=== PATIENT | female | born 1935 | race African-American/Black ===

== ENCOUNTER → 2016-04-06 | Outpatient (CLI) | payer MEDICARE, OTHER ==
[~2016-04-06] MED LIST: ACET-2744 PO; AMIO200T2 PO; ASCO500 PO; BENZ-26 PO; CEFU250T87 PO; CLOP75 PO; DIPH25 PO; DOXY100C PO; FOLI0.4T30 PO; GABA-533 PO; LEVO500 PO; VITE400 PO
[2016-04-06 12:20] VITALS: BP 167/69
== END | disposition home or self-care (01) ==
LOC: HBOWC 11:17
PROVIDERS: ATTEND Emergency Medicine
DX: L89.154 Pressure ulcer of sacral region, stage 4 (principal); I10 Essential (primary) hypertension; G35 Multiple sclerosis; B35.1 Tinea unguium; M86.9 Osteomyelitis, unspecified
CPT/HCPCS: 97597

== ENCOUNTER → 2016-04-20 | Outpatient (CLI) | payer MEDICARE, OTHER ==
[2016-04-20 11:24] VITALS: BP 165/85
== END | disposition home or self-care (01) ==
LOC: HBOWC 10:57
PROVIDERS: ATTEND Emergency Medicine Undersea and Hyperbaric Medicine
DX: L89.154 Pressure ulcer of sacral region, stage 4 (principal); I10 Essential (primary) hypertension; B35.1 Tinea unguium; M46.28 Osteomyelitis of vertebra, sacral and sacrococcygeal region
CPT/HCPCS: 97597

== ENCOUNTER → 2016-05-11 | Outpatient (CLI) | payer MEDICARE, OTHER ==
[2016-05-11 11:49] VITALS: BP 166/77
== END | disposition home or self-care (01) ==
LOC: HBOWC 11:38
PROVIDERS: ATTEND Emergency Medicine
DX: L89.154 Pressure ulcer of sacral region, stage 4 (principal); I10 Essential (primary) hypertension; B35.1 Tinea unguium; M46.28 Osteomyelitis of vertebra, sacral and sacrococcygeal region
CPT/HCPCS: 87070; 87205; 97597

== ENCOUNTER → 2016-05-25 | Outpatient (CLI) | payer MEDICARE, OTHER ==
[~2016-05-25] MED LIST changes: -CEFU250T87 PO
[2016-05-25 11:16] VITALS: BP 159/86
== END | disposition home or self-care (01) ==
LOC: HBOWC 10:25
PROVIDERS: ATTEND Emergency Medicine Undersea and Hyperbaric Medicine
DX: L89.154 Pressure ulcer of sacral region, stage 4 (principal); M46.28 Osteomyelitis of vertebra, sacral and sacrococcygeal region; I10 Essential (primary) hypertension; B35.1 Tinea unguium; G35 Multiple sclerosis
CPT/HCPCS: 97597

== ENCOUNTER 2016-06-08 17:44 | Emergency (ER) | payer MEDICARE, OTHER ==
[~2016-06-08] VITALS: Ht 170.2 cm; Wt 84.1 kg
[~2016-06-08 17:44] MED LIST changes: -BENZ-26 PO; -LEVO500 PO
[2016-06-08 18:52] LABS: BASOPHILS % (AUTO) 0.5 % (0.0-2.0); EOSINOPHILS % (AUTO) 11.6 % (1.0-6.0); HEMOGLOBIN 10.7 g/dL (12.0-16.0); LYMPHOCYTES # (AUTO) 2.2 K/uL (1.0-4.8); LYMPHOCYTES % (AUTO) 25.2 % (22.0-44.0); MEAN CORPUSCULAR HEMOGLOBIN 31.4 pg (26.0-34.0); MEAN CORPUSCULAR HGB CONC 33.3 G/dL (31.0-37.0); MEAN CORPUSCULAR VOLUME 94 fL (80-100); MONOCYTES # (AUTO) 0.2 K/uL (0.1-1.0); MONOCYTES % (AUTO) 2.8 % (2.0-9.0); NEUTROPHILS # (AUTO) 5.2 K/uL (1.8-7.7); NEUTROPHILS % (AUTO) 59.9 % (40.0-70.0); PLATELET COUNT (AUTO) 370 K/uL (150-450); RED CELL DISTRIBUTION WIDTH 17.9 % (11.5-14.5); WHITE BLOOD COUNT (AUTO) 8.6 K/uL (4.5-11.0)
[2016-06-08 18:56] LABS: ANION GAP 8 mmol/L (8-16); CALCIUM, TOTAL 9.8 mg/dL (8.8-10.5); CARBON DIOXIDE 24 mmol/L (22-29); CHLORIDE 96 mmol/L (98-107); CREATININE 0.67 mg/dL (0.60-1.30); GLOMERULAR FILTR. RATE CALC > 60 mL/min (>60); POTASSIUM 4.9 mmol/L (3.5-5.1); SODIUM SERUM 128 mmol/L (136-145); UREA NITROGEN, BLOOD 19 mg/dL (7-18)
[2016-06-08 19:07] LABS: B-TYPE NATRIURETIC PEPTIDE 130 pg/mL (0-100)
[2016-06-08 19:10] LABS: RBC MORPHOLOGY COMMENT ABNORMAL RBC MORPH
[2016-06-08 19:25] LABS: ALANINE AMINOTRANSFERASE 25 U/L (12-78); ALBUMIN 2.8 g/dL (3.4-5.0); ASPARTATE AMINOTRANSFERASE 25 U/L (15-37); BILIRUBIN,TOTAL 0.4 mg/dL (0.1-1.0); CREATINE KINASE MB 0.8 ng/mL (0-5); CREATINE KINASE, TOTAL 85 U/L (26-192); TOTAL PROTEIN, SERUM 7.7 g/dL (6.4-8.2)
[2016-06-08] MEDS ORDERED: SODIUM CHLORIDE 0.9% 1,000 ML IV ONE (20:15)
[2016-06-08] MEDS ORDERED: LEVOFLOXACIN 500 MG TABLET PO ONE (20:15)
[2016-06-08 23:00] VITALS: BP 136/77
== END 2016-06-08 23:58 | disposition home or self-care (01) ==
LOC: EMS 17:49
DX: J98.8 Other specified respiratory disorders (principal); E87.1 Hypo-osmolality and hyponatremia; L89.90 Pressure ulcer of unspecified site, unspecified stage; D64.9 Anemia, unspecified; I10 Essential (primary) hypertension
CPT/HCPCS: 71020; 80053; 82550; 82553; 83880; 84484; 85025; 93005; 96360; 96361; 99285; J7030

== ENCOUNTER → 2016-06-08 | Outpatient (CLI) | payer MEDICARE, OTHER ==
[2016-06-08 09:29] VITALS: BP 156/77
== END | disposition home or self-care (01) ==
LOC: HBOWC 08:44
PROVIDERS: ATTEND Emergency Medicine
DX: L89.154 Pressure ulcer of sacral region, stage 4 (principal); A37.90 Whooping cough, unspecified species without pneumonia; I10 Essential (primary) hypertension; G35 Multiple sclerosis; M46.28 Osteomyelitis of vertebra, sacral and sacrococcygeal region; B35.1 Tinea unguium
CPT/HCPCS: 97597

== ENCOUNTER 2016-06-10 10:42 | Emergency (ER) | payer MEDICARE, OTHER ==
[~2016-06-10] VITALS: Ht 167.6 cm; Wt 128.0 kg
[~2016-06-10 10:42] MED LIST changes: -DOXY100C PO
[2016-06-10] MEDS ORDERED: BENZ-26 PO (10:53)
[2016-06-10] MEDS ORDERED: LEVO500 PO (10:53)
[2016-06-10 11:27] LABS: BASOPHILS % (AUTO) 0.3 % (0.0-2.0); EOSINOPHILS % (AUTO) 10.2 % (1.0-6.0); HEMATOCRIT 30.8 % (36-46); HEMOGLOBIN 9.9 g/dL (12.0-16.0); LYMPHOCYTES # (AUTO) 1.5 K/uL (1.0-4.8); LYMPHOCYTES % (AUTO) 21.2 % (22.0-44.0); MEAN CORPUSCULAR HEMOGLOBIN 30.7 pg (26.0-34.0); MEAN CORPUSCULAR HGB CONC 32.3 G/dL (31.0-37.0); MEAN CORPUSCULAR VOLUME 95 fL (80-100); MONOCYTES # (AUTO) 0.4 K/uL (0.1-1.0); MONOCYTES % (AUTO) 5.9 % (2.0-9.0); NEUTROPHILS # (AUTO) 4.5 K/uL (1.8-7.7); NEUTROPHILS % (AUTO) 62.4 % (40.0-70.0); PLATELET COUNT (AUTO) 346 K/uL (150-450); RED BLOOD CELL COUNT(AUTO) 3.24 MIL/uL (4.00-5.20); RED CELL DISTRIBUTION WIDTH 17.9 % (11.5-14.5); WHITE BLOOD COUNT (AUTO) 7.2 K/uL (4.5-11.0)
[2016-06-10 11:37] LABS: ANION GAP 10 mmol/L (8-16); CALCIUM, TOTAL 9.4 mg/dL (8.8-10.5); CARBON DIOXIDE 23 mmol/L (22-29); CHLORIDE 97 mmol/L (98-107); CREATININE 0.62 mg/dL (0.60-1.30); GLOMERULAR FILTR. RATE CALC > 60 mL/min (>60); POTASSIUM 4.4 mmol/L (3.5-5.1); SODIUM SERUM 130 mmol/L (136-145); UREA NITROGEN, BLOOD 18 mg/dL (7-18)
[2016-06-10 11:49] LABS: ALANINE AMINOTRANSFERASE 19 U/L (12-78); ALBUMIN 2.7 g/dL (3.4-5.0); ASPARTATE AMINOTRANSFERASE 21 U/L (15-37); BILIRUBIN,TOTAL 0.3 mg/dL (0.1-1.0); TOTAL PROTEIN, SERUM 7.4 g/dL (6.4-8.2)
[2016-06-10 12:19] LABS: RBC MORPHOLOGY COMMENT ABNORMAL RBC MORPH
[2016-06-10] MEDS ORDERED: LEVOFLOXACIN 500 MG/D5% WATER 100 ML IV ONE (13:00)
[2016-06-10] MEDS ORDERED: SODIUM CHLORIDE 0.9% 1,000 ML IV ONE (13:00)
[2016-06-10] MEDS ORDERED: ONDANSETRON HCL 4 MG/2 ML VIAL IVP ONE (13:00)
[2016-06-10 15:20] VITALS: BP 133/74
== END 2016-06-10 15:27 | disposition home or self-care (01) ==
LOC: EMS 10:48
DX: J06.9 Acute upper respiratory infection, unspecified (principal); F41.9 Anxiety disorder, unspecified; R05 Cough; R06.02 Shortness of breath; L89.90 Pressure ulcer of unspecified site, unspecified stage; Z90.49 Acquired absence of other specified parts of digestive tract
CPT/HCPCS: 36415; 80053; 83880; 85025; 96365; 96375; 99285; J1956; J2405; J7030

== ENCOUNTER → 2016-06-22 | Outpatient (CLI) | payer MEDICARE, OTHER ==
[~2016-06-22] MED LIST changes: +BENZ-26 PO; +LEVO500 PO
[2016-06-22 09:25] VITALS: BP 163/81
== END | disposition home or self-care (01) ==
LOC: HBOWC 08:55
PROVIDERS: ATTEND Emergency Medicine
DX: L89.154 Pressure ulcer of sacral region, stage 4 (principal); I48.91 Unspecified atrial fibrillation; F41.9 Anxiety disorder, unspecified; I10 Essential (primary) hypertension; M46.28 Osteomyelitis of vertebra, sacral and sacrococcygeal region; G35 Multiple sclerosis
CPT/HCPCS: 97597

== ENCOUNTER → 2016-07-07 | Outpatient (CLI) | payer MEDICARE, OTHER ==
[2016-07-07 09:33] VITALS: BP 170/70
== END | disposition home or self-care (01) ==
LOC: HBOWC 09:03
PROVIDERS: ATTEND Emergency Medicine
DX: L89.154 Pressure ulcer of sacral region, stage 4 (principal); G35 Multiple sclerosis; I10 Essential (primary) hypertension; F41.9 Anxiety disorder, unspecified; M46.28 Osteomyelitis of vertebra, sacral and sacrococcygeal region; I48.91 Unspecified atrial fibrillation; E87.1 Hypo-osmolality and hyponatremia; B35.1 Tinea unguium
CPT/HCPCS: 97597

== ENCOUNTER → 2016-07-21 | Outpatient (CLI) | payer MEDICARE, OTHER ==
[2016-07-21 09:36] VITALS: BP 139/68
== END | disposition home or self-care (01) ==
LOC: HBOWC 08:51
PROVIDERS: ATTEND Emergency Medicine
DX: L89.154 Pressure ulcer of sacral region, stage 4 (principal); F41.9 Anxiety disorder, unspecified; E87.1 Hypo-osmolality and hyponatremia; G35 Multiple sclerosis; M46.28 Osteomyelitis of vertebra, sacral and sacrococcygeal region; B35.1 Tinea unguium; I48.91 Unspecified atrial fibrillation; I10 Essential (primary) hypertension
CPT/HCPCS: 97597

== ENCOUNTER → 2016-08-04 | Outpatient (CLI) | payer MEDICARE, OTHER ==
[2016-08-04 09:33] VITALS: BP 152/74
== END | disposition home or self-care (01) ==
LOC: HBOWC 08:59
PROVIDERS: ATTEND Emergency Medicine
DX: L89.154 Pressure ulcer of sacral region, stage 4 (principal); I10 Essential (primary) hypertension; F41.9 Anxiety disorder, unspecified; G35 Multiple sclerosis; I48.91 Unspecified atrial fibrillation; R32 Unspecified urinary incontinence; M46.28 Osteomyelitis of vertebra, sacral and sacrococcygeal region
CPT/HCPCS: 97597; 97598

== ENCOUNTER → 2016-08-18 | Outpatient (CLI) | payer MEDICARE, OTHER ==
[2016-08-18 10:02] VITALS: BP_SYST 169; BP_SYST 189; BP_DIAS 68; BP_DIAS 98
== END | disposition home or self-care (01) ==
LOC: HBOWC 09:07
PROVIDERS: ATTEND Emergency Medicine
DX: L89.154 Pressure ulcer of sacral region, stage 4 (principal); I48.91 Unspecified atrial fibrillation; B35.1 Tinea unguium; I10 Essential (primary) hypertension; M46.28 Osteomyelitis of vertebra, sacral and sacrococcygeal region; F41.9 Anxiety disorder, unspecified
CPT/HCPCS: 97597

== ENCOUNTER → 2016-08-31 | Outpatient (CLI) | payer MEDICARE, OTHER ==
[2016-08-31 11:27] VITALS: BP 152/94
== END | disposition home or self-care (01) ==
LOC: HBOWC 11:08
PROVIDERS: ATTEND Emergency Medicine Undersea and Hyperbaric Medicine
DX: L89.154 Pressure ulcer of sacral region, stage 4 (principal); G35 Multiple sclerosis; M46.28 Osteomyelitis of vertebra, sacral and sacrococcygeal region; I10 Essential (primary) hypertension; F41.9 Anxiety disorder, unspecified; B35.1 Tinea unguium; I48.91 Unspecified atrial fibrillation; E87.1 Hypo-osmolality and hyponatremia; R32 Unspecified urinary incontinence

== ENCOUNTER → 2016-09-21 | Outpatient (CLI) | payer MEDICARE, OTHER ==
[2016-09-21 10:55] VITALS: BP 176/79
== END | disposition home or self-care (01) ==
LOC: HBOWC 09:08
PROVIDERS: ATTEND Emergency Medicine
DX: L89.154 Pressure ulcer of sacral region, stage 4 (principal); M46.28 Osteomyelitis of vertebra, sacral and sacrococcygeal region; G35 Multiple sclerosis; F41.9 Anxiety disorder, unspecified; I10 Essential (primary) hypertension; E87.1 Hypo-osmolality and hyponatremia; B35.1 Tinea unguium; I48.91 Unspecified atrial fibrillation; R32 Unspecified urinary incontinence

== ENCOUNTER 2016-10-07 11:53 | Emergency (ER) | payer MEDICARE, OTHER ==
[~2016-10-07] VITALS: Ht 172.7 cm; Wt 9.1 kg
[~2016-10-07 11:53] MED LIST changes: -LEVO500 PO
[2016-10-07] MEDS ORDERED: LIDOCAINE HCL/PF 1% 30 ML VIAL ONE (14:34)
[2016-10-07] MEDS ORDERED: IOHEXOL 180 MG/ML 20 ML VIAL ONE ×2 (14:34→14:35)
[2016-10-07] MEDS ORDERED: IOVERSOL 320 MG/ML 100 ML VIAL ONE (15:27)
[2016-10-07] MEDS ORDERED: IOHEXOL 240 MG/ML 50 ML VIAL ONE (15:30)
[2016-10-07] MEDS ORDERED: ACETAMINOPHEN 500 MG TABLET PO ONE (16:15)
[2016-10-07 16:41] LABS: APPEARANCE,URINE CLOUDY (CLEAR); GLUCOSE, URINE (UA) NEGATIVE (NEGATIVE); KETONES,URINE 15 mg/dL (NEGATIVE); LEUKOCYTE ESTERASE ,URINE LARGE (NEGATIVE); OCCULT BLOOD,URINE LARGE (NEGATIVE); PH,URINE 6.5 (5.0-8.0); PROTEIN,URINE SEE CONFIRM (NEGATIVE)
[2016-10-07 16:52] LABS: ADD UA MICROSCOPIC YES
[2016-10-07 16:59] LABS: SULFOSALICYLIC ACID,URINE 2+ (Negative)
[2016-10-07 17:00] LABS: SQUAMOUS EPITHELIAL CELL,UR Few /LPF (None Seen)
[2016-10-07 17:01] LABS: RBC,URINE >100 /HPF (0-2)
[2016-10-07] MEDS ORDERED: CIPROFLOXACIN HCL 250 MG TABLET PO ONE (17:30)
[2016-10-07] MEDS ORDERED: PHENAZOPYRIDINE HCL 100 MG TABLET PO ONE (17:30)
[2016-10-07 17:36] VITALS: BP 147/72
== END 2016-10-07 18:12 | disposition home or self-care (01) ==
LOC: EMS 11:55
DX: T83.090A Other mechanical complication of cystostomy catheter, initial encounter (principal); N39.0 Urinary tract infection, site not specified; I10 Essential (primary) hypertension; Z88.0 Allergy status to penicillin; Z88.5 Allergy status to narcotic agent; Z88.6 Allergy status to analgesic agent
CPT/HCPCS: 36245; 75984; 81001; 87077; 87086; 87186; 99284; C1769; J3490; Q9965; Q9966; Q9967

== ENCOUNTER → 2016-10-12 | Outpatient (CLI) | payer MEDICARE, OTHER ==
[2016-10-12 10:38] VITALS: BP 136/59
[2016-10-12 12:59] LABS: GLUCOSE, URINE (UA) NEGATIVE (NEGATIVE); KETONES,URINE 40 mg/dL (NEGATIVE); PROTEIN,URINE SEE CONFIRM (NEGATIVE)
[2016-10-12 13:13] LABS: APPEARANCE,URINE SLIGHTLY CLOUDY (CLEAR); LEUKOCYTE ESTERASE ,URINE MODERATE (NEGATIVE); OCCULT BLOOD,URINE SMALL (NEGATIVE)
[2016-10-12 13:14] LABS: SQUAMOUS EPITHELIAL CELL,UR Moderate /LPF (None Seen); SULFOSALICYLIC ACID,URINE 1+ (Negative)
== END | disposition home or self-care (01) ==
LOC: HBOWC 10:11
PROVIDERS: ATTEND Emergency Medicine
DX: L89.154 Pressure ulcer of sacral region, stage 4 (principal); F41.9 Anxiety disorder, unspecified; B35.1 Tinea unguium; I48.91 Unspecified atrial fibrillation; I10 Essential (primary) hypertension
CPT/HCPCS: 81001; 81002; 87086; G0463

== ENCOUNTER → 2016-11-09 | Outpatient (CLI) | payer MEDICARE, OTHER ==
[2016-11-09 10:28] VITALS: BP 143/64
== END | disposition home or self-care (01) ==
LOC: HBOWC 09:05
PROVIDERS: ATTEND Emergency Medicine
DX: L89.154 Pressure ulcer of sacral region, stage 4 (principal); F41.9 Anxiety disorder, unspecified; I10 Essential (primary) hypertension; B35.1 Tinea unguium; I48.91 Unspecified atrial fibrillation; M46.28 Osteomyelitis of vertebra, sacral and sacrococcygeal region

== ENCOUNTER → 2016-11-19 | Outpatient (CLI) | payer MEDICARE, OTHER ==
[~2016-11-19] MED LIST changes: +FentaNYL CITRATE-PF 100 MCG/2 ML VIAL IVP ONE; +FentaNYL CITRATE-PF 100 MCG/2 ML VIAL ONE; +IOHEXOL 240 MG/ML 50 ML VIAL ONE; +LIDOCAINE HCL/PF 1% 30 ML VIAL ONE; +MIDAZOLAM HCL 2 MG/2 ML VIAL IVP ONE; +MIDAZOLAM HCL 2 MG/2 ML VIAL ONE
== END | disposition home or self-care (01) ==
LOC: RADMN 09:54
PROVIDERS: ATTEND Physician Assistant
DX: Z46.6 Encounter for fitting and adjustment of urinary device (principal); N31.9 Neuromuscular dysfunction of bladder, unspecified; K59.00 Constipation, unspecified
CPT/HCPCS: 36245; 74000; 75984; C1769; J2250; J3010; J3490; Q9966

== ENCOUNTER → 2016-12-07 | Outpatient (CLI) | payer MEDICARE, OTHER ==
[~2016-12-07] MED LIST changes: -BENZ-26 PO; +BENZ100C98 PO; -FOLI0.4T30 PO; +FOLI0.4T4 PO; -FentaNYL CITRATE-PF 100 MCG/2 ML VIAL IVP ONE; -FentaNYL CITRATE-PF 100 MCG/2 ML VIAL ONE; -IOHEXOL 240 MG/ML 50 ML VIAL ONE; +LIDOCAINE HCL 4% 50 ML SOLUTION TP ONE; -LIDOCAINE HCL/PF 1% 30 ML VIAL ONE; -MIDAZOLAM HCL 2 MG/2 ML VIAL IVP ONE; -MIDAZOLAM HCL 2 MG/2 ML VIAL ONE; +SODI473S21 TP; +SODIUM HYPOCHLORITE 0.25% [HALF STRENGTH] 473 ML SOLUTION TP ONE
[2016-12-07 09:57] VITALS: BP 176/76
== END | disposition home or self-care (01) ==
LOC: HBOWC 09:23
PROVIDERS: ATTEND Emergency Medicine
DX: L89.154 Pressure ulcer of sacral region, stage 4 (principal); G35 Multiple sclerosis; M46.28 Osteomyelitis of vertebra, sacral and sacrococcygeal region; N31.9 Neuromuscular dysfunction of bladder, unspecified; F41.9 Anxiety disorder, unspecified; I10 Essential (primary) hypertension; B35.1 Tinea unguium; I48.91 Unspecified atrial fibrillation
CPT/HCPCS: 11042; 11045

== ENCOUNTER → 2016-12-21 | Outpatient (CLI) | payer MEDICARE, OTHER ==
[~2016-12-21] MED LIST changes: +BENZ-51 PO; -BENZ100C98 PO; -LIDOCAINE HCL 4% 50 ML SOLUTION TP ONE; -SODIUM HYPOCHLORITE 0.25% [HALF STRENGTH] 473 ML SOLUTION TP ONE
[2016-12-21 09:48] VITALS: BP 196/96
== END | disposition home or self-care (01) ==
LOC: HBOWC 09:17
PROVIDERS: ATTEND Emergency Medicine
DX: L89.154 Pressure ulcer of sacral region, stage 4 (principal); B35.1 Tinea unguium; I48.91 Unspecified atrial fibrillation; M46.28 Osteomyelitis of vertebra, sacral and sacrococcygeal region; F41.9 Anxiety disorder, unspecified; I10 Essential (primary) hypertension
CPT/HCPCS: 11042; 11045

== ENCOUNTER → 2016-12-28 | Outpatient (CLI) | payer MEDICARE, OTHER ==
[2016-12-28 14:00] VITALS: BP 147/69
== END | disposition home or self-care (01) ==
LOC: HBOWC 12:32
PROVIDERS: ATTEND Emergency Medicine
DX: L89.154 Pressure ulcer of sacral region, stage 4 (principal); F41.9 Anxiety disorder, unspecified; I10 Essential (primary) hypertension; B35.1 Tinea unguium; M46.28 Osteomyelitis of vertebra, sacral and sacrococcygeal region; I48.91 Unspecified atrial fibrillation
CPT/HCPCS: 11042; 97605

== ENCOUNTER → 2017-01-04 | Outpatient (CLI) | payer MEDICARE, OTHER ==
[2017-01-04 08:27] VITALS: BP 152/71
== END | disposition home or self-care (01) ==
LOC: HBOWC 07:45
PROVIDERS: ATTEND Emergency Medicine
DX: L89.154 Pressure ulcer of sacral region, stage 4 (principal); G35 Multiple sclerosis; I10 Essential (primary) hypertension; I48.91 Unspecified atrial fibrillation; M46.28 Osteomyelitis of vertebra, sacral and sacrococcygeal region; F41.8 Other specified anxiety disorders; B35.1 Tinea unguium; L60.3 Nail dystrophy; R32 Unspecified urinary incontinence; Z46.6 Encounter for fitting and adjustment of urinary device
CPT/HCPCS: 11042; 11045; 97605

== ENCOUNTER → 2017-01-17 | Outpatient (CLI) | payer MEDICARE, OTHER ==
[~2017-01-17] MED LIST changes: +LIDOCAINE HCL 2% 5 ML JELLY TP ONE
[2017-01-17 08:31] VITALS: BP 175/66
== END | disposition home or self-care (01) ==
LOC: HBOWC 07:58
PROVIDERS: ATTEND Nurse Practitioner Adult Health
DX: L89.154 Pressure ulcer of sacral region, stage 4 (principal); I10 Essential (primary) hypertension; G35 Multiple sclerosis; M46.28 Osteomyelitis of vertebra, sacral and sacrococcygeal region; F41.8 Other specified anxiety disorders; I48.91 Unspecified atrial fibrillation; B35.1 Tinea unguium; L60.3 Nail dystrophy
CPT/HCPCS: 97605

== ENCOUNTER 2017-11-24 12:35 | Emergency (ER) | payer MEDICARE, OTHER ==
[~2017-11-24] VITALS: Ht 170.2 cm; Wt 81.4 kg
[~2017-11-24 12:35] MED LIST changes: -AMIO200T2 PO; +AMIO200T5 PO; -LIDOCAINE HCL 2% 5 ML JELLY TP ONE
[2017-11-24 13:32] LABS: BASOPHILS % (AUTO) 1.1 % (0.0-2.0); EOSINOPHILS % (AUTO) 6.5 % (1.0-6.0); HEMATOCRIT 36.1 % (36-46); HEMOGLOBIN 11.9 g/dL (12.0-16.0); LYMPHOCYTES # (AUTO) 1.7 K/uL (1.0-4.8); LYMPHOCYTES % (AUTO) 38.5 % (22.0-44.0); MEAN CORPUSCULAR HEMOGLOBIN 33.3 pg (26.0-34.0); MEAN CORPUSCULAR VOLUME 101 fL (80-100); MONOCYTES # (AUTO) 0.3 K/uL (0.1-1.0); MONOCYTES % (AUTO) 6.9 % (2.0-9.0); NEUTROPHILS # (AUTO) 2.1 K/uL (1.8-7.7); PLATELET COUNT (AUTO) 240 K/uL (150-450); RED BLOOD CELL COUNT(AUTO) 3.58 MIL/uL (4.00-5.20); RED CELL DISTRIBUTION WIDTH 13.9 % (11.5-14.5)
[2017-11-24 13:53] LABS: ANION GAP 9 mmol/L (8-16); CALCIUM, TOTAL 9.6 mg/dL (8.8-10.5); CARBON DIOXIDE 27 mmol/L (22-29); CHLORIDE 97 mmol/L (98-107); CREATININE 0.46 mg/dL (0.60-1.30); GLUCOSE,RANDOM 98 mg/dL (70-110); POTASSIUM 4.4 mmol/L (3.5-5.1); SODIUM SERUM 133 mmol/L (136-145); UREA NITROGEN, BLOOD 11 mg/dL (7-18)
[2017-11-24 13:56] LABS: ALANINE AMINOTRANSFERASE 15 U/L (12-78); ALBUMIN 3.1 g/dL (3.4-5.0); ALKALINE PHOSPHATASE 118 U/L (46-116); ASPARTATE AMINOTRANSFERASE 16 U/L (15-37); BILIRUBIN,TOTAL 0.5 mg/dL (0.1-1.0); GLOMERULAR FILTR. RATE CALC > 60 mL/min (>60)
[2017-11-24] MEDS ORDERED: SODIUM CHLORIDE 0.9% 1,000 ML IV ONE (14:45)
[2017-11-24] MEDS ORDERED: MIDAZOLAM HCL 5 MG/ML VIAL ONE (15:30)
[2017-11-24] MEDS ORDERED: FentaNYL CITRATE-PF 100 MCG/2 ML VIAL ONE (15:30)
[2017-11-24 16:53] VITALS: BP 151/85
== END 2017-11-24 18:30 | disposition home or self-care (01) ==
LOC: EMS 12:38
DX: T18.108A Unspecified foreign body in esophagus causing other injury, initial encounter (principal); R13.10 Dysphagia, unspecified; I10 Essential (primary) hypertension; G89.29 Other chronic pain; Z90.49 Acquired absence of other specified parts of digestive tract; Z88.0 Allergy status to penicillin; Z88.5 Allergy status to narcotic agent
CPT/HCPCS: 36415; 43247; 71045; 80053; 84484; 85025; 93005; 99285; J2250; J3010; J7030

== ENCOUNTER 2018-07-14 09:16 | Emergency (ER) | payer MEDICARE, OTHER ==
[~2018-07-14] VITALS: Ht 172.7 cm; Wt 86.4 kg
[~2018-07-14 09:16] MED LIST changes: -AMIO200T5 PO; -BENZ-51 PO; -CLOP75 PO; +CLOP75TA3 PO; +DICL2100G TP; -DIPH25 PO; +DOCU-202 PO; +FOLI0.4T14 PO; -FOLI0.4T4 PO; -GABA-533 PO; +LEVO50 PO; +LISI-661 PO; +MAGOX PO; +NACL1 PO; +PANT40TA25 PO
[2018-07-14 10:56] LABS: EOSINOPHILS % (AUTO) 5.9 % (1.0-6.0); HEMATOCRIT 34.3 % (36-46); HEMOGLOBIN 11.4 g/dL (12.0-16.0); LYMPHOCYTES # (AUTO) 1.4 K/uL (1.0-4.8); LYMPHOCYTES % (AUTO) 35.3 % (22.0-44.0); MEAN CORPUSCULAR HEMOGLOBIN 33.4 pg (26.0-34.0); MEAN CORPUSCULAR HGB CONC 33.4 G/dL (31.0-37.0); MEAN CORPUSCULAR VOLUME 100 fL (80-100); MONOCYTES # (AUTO) 0.3 K/uL (0.1-1.0); MONOCYTES % (AUTO) 7.2 % (2.0-9.0); NEUTROPHILS % (AUTO) 50.6 % (40.0-70.0); PLATELET COUNT (AUTO) 245 K/uL (150-450); RED BLOOD CELL COUNT(AUTO) 3.43 MIL/uL (4.00-5.20); RED CELL DISTRIBUTION WIDTH 13.5 % (11.5-14.5)
[2018-07-14 10:57] LABS: APPEARANCE,URINE CLOUDY (CLEAR); BILIRUBIN,URINE NEGATIVE (NEGATIVE); GLUCOSE, URINE (UA) NEGATIVE (NEGATIVE); KETONES,URINE NEGATIVE (NEGATIVE); LEUKOCYTE ESTERASE ,URINE LARGE (NEGATIVE); NITRATE,URINE POSITIVE (NEGATIVE); OCCULT BLOOD,URINE NEGATIVE (NEGATIVE); PROTEIN,URINE NEGATIVE (NEGATIVE); UROBILINOGEN,URINE 0.2 mg/dL (<=1.0)
[2018-07-14 11:02] LABS: ANION GAP 6 mmol/L (8-16); CALCIUM, TOTAL 9.4 mg/dL (8.8-10.5); CARBON DIOXIDE 28 mmol/L (22-29); CHLORIDE 97 mmol/L (98-107); CREATININE 0.53 mg/dL (0.60-1.30); GLUCOSE,RANDOM 97 mg/dL (70-110); POTASSIUM 4.3 mmol/L (3.5-5.1); SODIUM SERUM 131 mmol/L (136-145); UREA NITROGEN, BLOOD 13 mg/dL (7-18)
[2018-07-14 11:10] LABS: ALANINE AMINOTRANSFERASE 23 U/L (12-78); ALBUMIN 3.1 g/dL (3.4-5.0); ALKALINE PHOSPHATASE 118 U/L (46-116); ASPARTATE AMINOTRANSFERASE 21 U/L (15-37); BILIRUBIN,TOTAL 0.3 mg/dL (0.1-1.0); TOTAL PROTEIN, SERUM 6.9 g/dL (6.4-8.2)
[2018-07-14 11:14] LABS: BACTERIA,URINE Moderate /HPF (None Seen); RBC,URINE 0-2 /HPF (0-2); SQUAMOUS EPITHELIAL CELL,UR Few /LPF (None Seen)
[2018-07-14 11:18] LABS: GLOMERULAR FILTR. RATE CALC > 60 mL/min (>60)
[2018-07-14 11:52] LABS: B-TYPE NATRIURETIC PEPTIDE 96 pg/mL (0-100)
[2018-07-14 12:56] VITALS: BP 154/75
== END 2018-07-14 13:17 | disposition home or self-care (01) ==
LOC: EMS 09:16
DX: R60.0 Localized edema (principal); N39.0 Urinary tract infection, site not specified; I10 Essential (primary) hypertension; G89.29 Other chronic pain; Z90.49 Acquired absence of other specified parts of digestive tract; Z88.0 Allergy status to penicillin; Z88.5 Allergy status to narcotic agent; Z79.899 Other long term (current) drug therapy
CPT/HCPCS: 85379; 87086; 93005; 93971

== ENCOUNTER 2018-12-12 08:55 | Emergency (ER) | payer MEDICARE, OTHER ==
[~2018-12-12] VITALS: Ht 170.2 cm; Wt 74.1 kg
[2018-12-12] MEDS ORDERED: HydrOXYzine PAMOATE 50 MG CAPSULE PO ONE (09:30)
[2018-12-12 09:44] LABS: BASOPHILS % (AUTO) 0.8 % (0.0-2.0); EOSINOPHILS % (AUTO) 4.7 % (1.0-6.0); HEMATOCRIT 31.8 % (36-46); HEMOGLOBIN 10.8 g/dL (12.0-16.0); LYMPHOCYTES # (AUTO) 1.8 K/uL (1.0-4.8); LYMPHOCYTES % (AUTO) 41.7 % (22.0-44.0); MEAN CORPUSCULAR HEMOGLOBIN 33.3 pg (26.0-34.0); MEAN CORPUSCULAR HGB CONC 34.1 G/dL (31.0-37.0); MEAN CORPUSCULAR VOLUME 98 fL (80-100); MONOCYTES # (AUTO) 0.3 K/uL (0.1-1.0); MONOCYTES % (AUTO) 6.6 % (2.0-9.0); NEUTROPHILS % (AUTO) 46.2 % (40.0-70.0); PLATELET COUNT (AUTO) 298 K/uL (150-450); RED BLOOD CELL COUNT(AUTO) 3.26 MIL/uL (4.00-5.20); RED CELL DISTRIBUTION WIDTH 14.4 % (11.5-14.5)
[2018-12-12 09:53] LABS: ANION GAP 12 mmol/L (8-16); CALCIUM, TOTAL 9.9 mg/dL (8.8-10.5); CARBON DIOXIDE 28 mmol/L (22-29); CHLORIDE 93 mmol/L (98-107); CREATININE 0.73 mg/dL (0.60-1.30); GLOMERULAR FILTR. RATE CALC > 60 mL/min (>60); GLUCOSE,RANDOM 99 mg/dL (70-110); POTASSIUM 3.3 mmol/L (3.5-5.1); SODIUM SERUM 133 mmol/L (136-145); UREA NITROGEN, BLOOD 15 mg/dL (7-18)
[2018-12-12 10:15] VITALS: BP 137/71
== END 2018-12-12 11:00 | disposition home or self-care (01) ==
LOC: EMS 08:56
DX: J40 Bronchitis, not specified as acute or chronic (principal); F41.9 Anxiety disorder, unspecified; I10 Essential (primary) hypertension; Z90.49 Acquired absence of other specified parts of digestive tract; Z88.0 Allergy status to penicillin; Z88.5 Allergy status to narcotic agent; Z79.01 Long term (current) use of anticoagulants; Z79.899 Other long term (current) drug therapy

== ENCOUNTER 2019-04-23 11:06 | Inpatient (IN) | payer MEDICARE, OTHER ==
[~2019-04-23] VITALS: Ht 172.7 cm; Wt 66.0 kg
[2019-04-23] MEDS ORDERED: GABA-533 PO (11:50)
[2019-04-23] MEDS ORDERED: DIPH25CA53 PO (11:50)
[2019-04-23] MEDS ORDERED: CHOL100018 PO (11:50)
[2019-04-23] MEDS ORDERED: FURO20 PO (11:50)
[2019-04-23] MEDS ORDERED: OXYB5XL PO (11:50)
[2019-04-23] MEDS ORDERED: PENT400T37 PO (11:50)
[2019-04-23 12:30] LABS: BASOPHILS % (AUTO) 0.8 % (0.0-2.0); EOSINOPHILS % (AUTO) 6.5 % (1.0-6.0); HEMOGLOBIN 10.1 g/dL (12.0-16.0); LYMPHOCYTES # (AUTO) 1.9 K/uL (1.0-4.8); LYMPHOCYTES % (AUTO) 40.3 % (22.0-44.0); MEAN CORPUSCULAR HGB CONC 33.7 G/dL (31.0-37.0); MEAN CORPUSCULAR VOLUME 101 fL (80-100); MONOCYTES # (AUTO) 0.4 K/uL (0.1-1.0); MONOCYTES % (AUTO) 7.4 % (2.0-9.0); NEUTROPHILS # (AUTO) 2.2 K/uL (1.8-7.7); PLATELET COUNT (AUTO) 176 K/uL (150-450); RED BLOOD CELL COUNT(AUTO) 2.97 MIL/uL (4.00-5.20); RED CELL DISTRIBUTION WIDTH 13.7 % (11.5-14.5)
[2019-04-23 12:41] LABS: CALCIUM, TOTAL 9.6 mg/dL (8.8-10.5); CREATININE 1.46 mg/dL (0.60-1.30); POTASSIUM 4.5 mmol/L (3.5-5.1)
[2019-04-23 12:46] LABS: ALBUMIN 3.3 g/dL (3.4-5.0); BILIRUBIN,TOTAL 0.2 mg/dL (0.1-1.0); TOTAL PROTEIN, SERUM 7.4 g/dL (6.4-8.2)
[2019-04-23 12:54] LABS: PROTHROMBIN TIME 10.2 SEC (9.4-11.6)
[2019-04-23] MEDS ORDERED: SODIUM CHLORIDE 0.9% 250 ML IV ONE (13:15)
[2019-04-23] MEDS ORDERED: FURO40 PO (13:17)
[2019-04-23] MEDS ORDERED: AMIO100T4 PO (13:17)
[2019-04-23] MEDS ORDERED: LEVO50TA11 PO (13:17)
[2019-04-23] MEDS ORDERED: DOCU-342 PO (13:17)
[2019-04-23] MEDS ORDERED: PANT40TA25 PO (13:17)
[2019-04-23] MEDS ORDERED: IOVERSOL 320 MG/ML 100 ML VIAL ONE (13:50)
[2019-04-23] MEDS ORDERED: SODIUM CHLORIDE 0.9% 100 ML ONE (13:50)
[2019-04-23 17:17] LABS: APPEARANCE,URINE CLOUDY (CLEAR); BILIRUBIN,URINE NEGATIVE (NEGATIVE); GLUCOSE, URINE (UA) NEGATIVE (NEGATIVE); KETONES,URINE NEGATIVE (NEGATIVE); LEUKOCYTE ESTERASE ,URINE LARGE (NEGATIVE); NITRATE,URINE POSITIVE (NEGATIVE); OCCULT BLOOD,URINE MODERATE (NEGATIVE); PH,URINE 7.5 (5.0-8.0); PROTEIN,URINE TRACE (NEGATIVE); UROBILINOGEN,URINE 0.2 mg/dL (<=1.0)
[2019-04-23] MEDS ORDERED: ACETAMINOPHEN 325 MG TABLET PO PRN (17:30)
[2019-04-23] MEDS ORDERED: LEVOFLOXACIN 750 MG/D5% WATER 150 ML IV ONE (17:30)
[2019-04-23] MEDS ORDERED: 0.9% SODIUM CHLORIDE 10 ML SYRINGE IVP PRN (17:30)
[2019-04-23 17:39] LABS: BACTERIA,URINE Few /HPF (None Seen); SQUAMOUS EPITHELIAL CELL,UR Few /LPF (None Seen)
[2019-04-23 20:06] VITALS: BP 111/56
[2019-04-23] MEDS ORDERED: MAGNESIUM HYDROXIDE SUSPENSION 30 ML UDCUP PO PRN (22:00)
[2019-04-23] MEDS ORDERED: ZOLPIDEM TARTRATE 5 MG TABLET PO PRN (22:00)
[2019-04-23] MEDS ORDERED: *CLINICAL-LEVOFLOXACIN IVPB DOSING CLINICAL ONE (22:00)
[2019-04-23] MEDS ORDERED: BISACODYL 10 MG RECTAL RECTAL SUPPOSITORY PR PRN (22:00)
[2019-04-23] MEDS: HEPARIN SODIUM,PORCINE 5,000 UNITS/ML VIAL SQ SCH (23:15)
[2019-04-23] MEDS: ACETAMINOPHEN 325 MG TABLET PO PRN (23:15)
[2019-04-23 23:53] VITALS: BP 126/73
[2019-04-24 05:48] LABS: BASOPHILS % (AUTO) 0.5 % (0.0-2.0); EOSINOPHILS % (AUTO) 7.5 % (1.0-6.0); HEMATOCRIT 29.1 % (36-46); HEMOGLOBIN 9.7 g/dL (12.0-16.0); LYMPHOCYTES % (AUTO) 34.9 % (22.0-44.0); MEAN CORPUSCULAR HEMOGLOBIN 33.5 pg (26.0-34.0); MEAN CORPUSCULAR HGB CONC 33.4 G/dL (31.0-37.0); MEAN CORPUSCULAR VOLUME 100 fL (80-100); MONOCYTES # (AUTO) 0.4 K/uL (0.1-1.0); NEUTROPHILS # (AUTO) 2.8 K/uL (1.8-7.7); NEUTROPHILS % (AUTO) 49.1 % (40.0-70.0); PLATELET COUNT (AUTO) 177 K/uL (150-450); RED CELL DISTRIBUTION WIDTH 13.9 % (11.5-14.5)
[2019-04-24 06:07] LABS: ALBUMIN 2.8 g/dL (3.4-5.0); BILIRUBIN,TOTAL 0.3 mg/dL (0.1-1.0); CALCIUM, TOTAL 9.3 mg/dL (8.8-10.5); CREATININE 1.09 mg/dL (0.60-1.30); POTASSIUM 4.5 mmol/L (3.5-5.1); TOTAL PROTEIN, SERUM 6.6 g/dL (6.4-8.2)
[2019-04-24] MEDS: LEVOTHYROXINE SODIUM 50 MCG TABLET PO SCH (06:07)
[2019-04-24 06:30] LABS: PLATELET MORPHOLOGY COMMENT GIANT PLTS PRESENT
[2019-04-24 08:21] VITALS: BP 101/55
[2019-04-24] MEDS: PENTOXIFYLLINE 400 MG DR TABLET PO SCH ×2 (08:31→22:16)
[2019-04-24] MEDS: DOCUSATE SODIUM 100 MG CAPSULE PO SCH ×2 (08:32→19:49)
[2019-04-24] MEDS: PANTOPRAZOLE SODIUM 40 MG DR TABLET PO SCH (08:32)
[2019-04-24] MEDS: CHOLECALCIFEROL (VIT D3) 1,000 UNITS TABLET PO SCH (08:32)
[2019-04-24] MEDS: HEPARIN SODIUM,PORCINE 5,000 UNITS/ML VIAL SQ SCH ×2 (08:32→15:54)
[2019-04-24] MEDS: VITAMIN E 400 UNITS CAPSULE PO SCH (08:32)
[2019-04-24] MEDS: CLOPIDOGREL BISULFATE 75 MG TABLET PO SCH (08:33)
[2019-04-24] MEDS ORDERED: ASCORBIC ACID 500 MG TABLET PO SCH (09:00)
[2019-04-24 12:31] VITALS: BP 155/86
[2019-04-24] MEDS: OXYBUTYNIN CHLORIDE 5 MG ER TABLET PO SCH (15:55)
[2019-04-24 16:10] VITALS: BP 117/58
[2019-04-24] MEDS ORDERED: SODIUM CHLORIDE 0.9% 500 ML IV ONE (16:47)
[2019-04-24] MEDS ORDERED: SODIUM CHLORIDE 0.9% 1,000 ML IV ONE (17:15)
[2019-04-24 19:58] VITALS: BP 150/76
[2019-04-24] MEDS: NYSTATIN 15 GM POWDER BOTTLE TP SCH (22:16)
[2019-04-24 23:20] VITALS: BP 186/100
[2019-04-25] MEDS: HEPARIN SODIUM,PORCINE 5,000 UNITS/ML VIAL SQ SCH ×3 (00:25→16:56)
[2019-04-25 05:35] VITALS: BP 156/92
[2019-04-25] MEDS: LEVOTHYROXINE SODIUM 50 MCG TABLET PO SCH (06:32)
[2019-04-25 08:06] VITALS: BP 133/75
[2019-04-25] MEDS: VITAMIN E 400 UNITS CAPSULE PO SCH (08:35)
[2019-04-25] MEDS: CHOLECALCIFEROL (VIT D3) 1,000 UNITS TABLET PO SCH (08:35)
[2019-04-25] MEDS: PENTOXIFYLLINE 400 MG DR TABLET PO SCH ×2 (08:35→20:44)
[2019-04-25] MEDS: CLOPIDOGREL BISULFATE 75 MG TABLET PO SCH (08:35)
[2019-04-25] MEDS: PANTOPRAZOLE SODIUM 40 MG DR TABLET PO SCH (08:36)
[2019-04-25] MEDS: ASCORBIC ACID 500 MG TABLET PO SCH (08:36)
[2019-04-25] MEDS: MULTIVITAMINS WITH MINERALS, THERAPEUTIC TABLET PO SCH (08:36)
[2019-04-25] MEDS: OXYBUTYNIN CHLORIDE 5 MG ER TABLET PO SCH (08:36)
[2019-04-25] MEDS: NYSTATIN 15 GM POWDER BOTTLE TP SCH ×2 (08:36→20:44)
[2019-04-25] MEDS: DOCUSATE SODIUM 100 MG CAPSULE PO SCH ×2 (08:36→21:00)
[2019-04-25 11:46] VITALS: BP 135/70
[2019-04-25] MEDS: CefTRIAXone 1 GM/DEXTROSE 50 ML IV SCH (12:31)
[2019-04-25 16:05] VITALS: BP 168/84
[2019-04-25] MEDS: SILVER 45 ML GEL TP SCH (16:51)
[2019-04-25] MEDS ORDERED: LEVOFLOXACIN 750 MG/D5% WATER 150 ML IV SCH (18:00)
[2019-04-25 19:50] VITALS: BP 150/74
[2019-04-25 23:15] VITALS: BP 138/72
[2019-04-26] MEDS: HEPARIN SODIUM,PORCINE 5,000 UNITS/ML VIAL SQ SCH ×3 (00:33→15:06)
[2019-04-26 04:00] VITALS: BP 142/70
[2019-04-26] MEDS: LEVOTHYROXINE SODIUM 50 MCG TABLET PO SCH (06:30)
[2019-04-26 07:01] LABS: BASOPHILS % (AUTO) 0.3 % (0.0-2.0); EOSINOPHILS % (AUTO) 0.1 % (1.0-6.0); HEMATOCRIT 34.7 % (36-46); HEMOGLOBIN 11.6 g/dL (12.0-16.0); LYMPHOCYTES # (AUTO) 0.9 K/uL (1.0-4.8); LYMPHOCYTES % (AUTO) 11.8 % (22.0-44.0); MEAN CORPUSCULAR HEMOGLOBIN 33.8 pg (26.0-34.0); MEAN CORPUSCULAR HGB CONC 33.5 G/dL (31.0-37.0); MEAN CORPUSCULAR VOLUME 101 fL (80-100); MONOCYTES # (AUTO) 0.3 K/uL (0.1-1.0); NEUTROPHILS # (AUTO) 6.4 K/uL (1.8-7.7); NEUTROPHILS % (AUTO) 83.8 % (40.0-70.0); PLATELET COUNT (AUTO) 180 K/uL (150-450); RED BLOOD CELL COUNT(AUTO) 3.44 MIL/uL (4.00-5.20); RED CELL DISTRIBUTION WIDTH 13.7 % (11.5-14.5)
[2019-04-26 07:27] LABS: ANION GAP 19 mmol/L (8-16); CALCIUM, TOTAL 10.4 mg/dL (8.8-10.5); CARBON DIOXIDE 17 mmol/L (22-29); CHLORIDE 103 mmol/L (98-107); CREATININE 0.56 mg/dL (0.60-1.30); GLUCOSE,RANDOM 114 mg/dL (70-110); POTASSIUM 4.7 mmol/L (3.5-5.1); SODIUM SERUM 139 mmol/L (136-145); UREA NITROGEN, BLOOD 14 mg/dL (7-18)
[2019-04-26 07:29] LABS: GLOMERULAR FILTR. RATE CALC > 60 mL/min (>60)
[2019-04-26] MEDS: ONDANSETRON HCL 4 MG/2 ML VIAL IVP PRN ×3 (08:36→21:05)
[2019-04-26] MEDS: DOCUSATE SODIUM 100 MG CAPSULE PO SCH ×2 (09:00→21:05)
[2019-04-26 09:13] VITALS: BP 156/81
[2019-04-26] MEDS: OXYBUTYNIN CHLORIDE 5 MG ER TABLET PO SCH (09:17)
[2019-04-26] MEDS: CLOPIDOGREL BISULFATE 75 MG TABLET PO SCH (09:17)
[2019-04-26] MEDS: VITAMIN E 400 UNITS CAPSULE PO SCH (09:17)
[2019-04-26] MEDS: ASCORBIC ACID 500 MG TABLET PO SCH (09:17)
[2019-04-26] MEDS: PENTOXIFYLLINE 400 MG DR TABLET PO SCH ×2 (09:17→21:05)
[2019-04-26] MEDS: CHOLECALCIFEROL (VIT D3) 1,000 UNITS TABLET PO SCH (09:17)
[2019-04-26] MEDS: PANTOPRAZOLE SODIUM 40 MG DR TABLET PO SCH (09:17)
[2019-04-26] MEDS: MULTIVITAMINS WITH MINERALS, THERAPEUTIC TABLET PO SCH (09:17)
[2019-04-26] MEDS: SILVER 45 ML GEL TP SCH (09:18)
[2019-04-26] MEDS: CefTRIAXone 1 GM/DEXTROSE 50 ML IV SCH (11:45)
[2019-04-26] MEDS ORDERED: SODIUM CHLORIDE 0.9% 1,000 ML IV ONE ×2 (12:30→16:30)
[2019-04-26 13:20] VITALS: BP 149/84
[2019-04-26] MEDS: NYSTATIN 15 GM POWDER BOTTLE TP SCH ×2 (14:33→21:05)
[2019-04-26 17:10] VITALS: BP 149/90
[2019-04-26 19:55] VITALS: BP 137/76
[2019-04-26 21:40] LABS: GLUCOMETER DEV NAME(LOC) 4E.2; GLUCOSE,POINT OF CARE 128 MG/DL (70-110)
[2019-04-26 23:28] VITALS: BP 126/73
[2019-04-27] MEDS: HEPARIN SODIUM,PORCINE 5,000 UNITS/ML VIAL SQ SCH ×4 (01:48→23:46)
[2019-04-27 04:35] VITALS: BP 146/88
[2019-04-27] MEDS: ONDANSETRON HCL 4 MG/2 ML VIAL IVP PRN (05:59)
[2019-04-27] MEDS: LEVOTHYROXINE SODIUM 50 MCG TABLET PO SCH (06:00)
[2019-04-27 07:24] LABS: BASOPHILS % (AUTO) 0.1 % (0.0-2.0); EOSINOPHILS % (AUTO) 0.1 % (1.0-6.0); HEMATOCRIT 32.5 % (36-46); HEMOGLOBIN 10.8 g/dL (12.0-16.0); LYMPHOCYTES # (AUTO) 1.1 K/uL (1.0-4.8); LYMPHOCYTES % (AUTO) 12.9 % (22.0-44.0); MEAN CORPUSCULAR HEMOGLOBIN 33.6 pg (26.0-34.0); MEAN CORPUSCULAR HGB CONC 33.3 G/dL (31.0-37.0); MEAN CORPUSCULAR VOLUME 101 fL (80-100); MONOCYTES # (AUTO) 0.5 K/uL (0.1-1.0); MONOCYTES % (AUTO) 5.6 % (2.0-9.0); NEUTROPHILS # (AUTO) 6.8 K/uL (1.8-7.7); NEUTROPHILS % (AUTO) 81.3 % (40.0-70.0); PLATELET COUNT (AUTO) 213 K/uL (150-450); RED BLOOD CELL COUNT(AUTO) 3.22 MIL/uL (4.00-5.20); RED CELL DISTRIBUTION WIDTH 13.6 % (11.5-14.5)
[2019-04-27 07:34] LABS: ANION GAP 15 mmol/L (8-16); CALCIUM, TOTAL 9.9 mg/dL (8.8-10.5); CARBON DIOXIDE 20 mmol/L (22-29); CHLORIDE 108 mmol/L (98-107); CREATININE 0.64 mg/dL (0.60-1.30); GLUCOSE,RANDOM 111 mg/dL (70-110); POTASSIUM 4.1 mmol/L (3.5-5.1); SODIUM SERUM 143 mmol/L (136-145); UREA NITROGEN, BLOOD 18 mg/dL (7-18)
[2019-04-27 07:35] LABS: GLOMERULAR FILTR. RATE CALC > 60 mL/min (>60)
[2019-04-27 07:48] VITALS: BP 138/75
[2019-04-27] MEDS: ASCORBIC ACID 500 MG TABLET PO SCH (08:09)
[2019-04-27] MEDS: MULTIVITAMINS WITH MINERALS, THERAPEUTIC TABLET PO SCH (08:09)
[2019-04-27] MEDS: VITAMIN E 400 UNITS CAPSULE PO SCH (08:09)
[2019-04-27] MEDS: DOCUSATE SODIUM 100 MG CAPSULE PO SCH ×2 (08:09→20:06)
[2019-04-27] MEDS: CHOLECALCIFEROL (VIT D3) 1,000 UNITS TABLET PO SCH (08:10)
[2019-04-27] MEDS: PENTOXIFYLLINE 400 MG DR TABLET PO SCH ×2 (08:10→20:06)
[2019-04-27] MEDS: PANTOPRAZOLE SODIUM 40 MG DR TABLET PO SCH (08:10)
[2019-04-27] MEDS: OXYBUTYNIN CHLORIDE 5 MG ER TABLET PO SCH (08:10)
[2019-04-27] MEDS: ACETAMINOPHEN 325 MG TABLET PO PRN (08:10)
[2019-04-27] MEDS: CLOPIDOGREL BISULFATE 75 MG TABLET PO SCH (08:10)
[2019-04-27] MEDS: NYSTATIN 15 GM POWDER BOTTLE TP SCH ×2 (08:11→20:06)
[2019-04-27] MEDS: SILVER 45 ML GEL TP SCH (08:11)
[2019-04-27] MEDS ORDERED: BISACODYL 10 MG RECTAL RECTAL SUPPOSITORY PR PRN (10:00)
[2019-04-27] MEDS ORDERED: LACTULOSE 20 GM/30 ML SOLUTION UDCUP PO PRN (10:15)
[2019-04-27 11:04] VITALS: BP 132/68
[2019-04-27] MEDS: POLYETHYLENE GLYCOL 3350 17 GM PACKET PO SCH (11:09)
[2019-04-27] MEDS: CefTRIAXone 1 GM/DEXTROSE 50 ML IV SCH (11:09)
[2019-04-27 19:45] VITALS: BP 129/69
[2019-04-27 23:52] VITALS: BP 118/64
[2019-04-28] MEDS: LEVOTHYROXINE SODIUM 50 MCG TABLET PO SCH (05:52)
[2019-04-28 05:58] VITALS: BP 144/92
[2019-04-28 07:18] LABS: BASOPHILS % (AUTO) 0.3 % (0.0-2.0); EOSINOPHILS % (AUTO) 0.1 % (1.0-6.0); HEMATOCRIT 30.7 % (36-46); HEMOGLOBIN 10.4 g/dL (12.0-16.0); LYMPHOCYTES # (AUTO) 1.4 K/uL (1.0-4.8); LYMPHOCYTES % (AUTO) 17.4 % (22.0-44.0); MEAN CORPUSCULAR HGB CONC 33.8 G/dL (31.0-37.0); MEAN CORPUSCULAR VOLUME 100 fL (80-100); MONOCYTES # (AUTO) 0.5 K/uL (0.1-1.0); MONOCYTES % (AUTO) 5.9 % (2.0-9.0); NEUTROPHILS # (AUTO) 6.2 K/uL (1.8-7.7); NEUTROPHILS % (AUTO) 76.3 % (40.0-70.0); PLATELET COUNT (AUTO) 210 K/uL (150-450); RED BLOOD CELL COUNT(AUTO) 3.06 MIL/uL (4.00-5.20); RED CELL DISTRIBUTION WIDTH 14.1 % (11.5-14.5)
[2019-04-28 07:40] LABS: ANION GAP 10 mmol/L (8-16); CALCIUM, TOTAL 10.5 mg/dL (8.8-10.5); CARBON DIOXIDE 22 mmol/L (22-29); CHLORIDE 110 mmol/L (98-107); CREATININE 0.73 mg/dL (0.60-1.30); FREE T4 (FREE THYROXINE) 1.29 ng/dL (0.76-1.46); GLUCOSE,RANDOM 91 mg/dL (70-110); POTASSIUM 3.8 mmol/L (3.5-5.1); SODIUM SERUM 142 mmol/L (136-145); THYROID STIMULATING HORMONE 2.59 uIU/mL (0.36-3.74); UREA NITROGEN, BLOOD 13 mg/dL (7-18)
[2019-04-28 07:45] LABS: GLOMERULAR FILTR. RATE CALC > 60 mL/min (>60)
[2019-04-28 07:57] VITALS: BP 157/77
[2019-04-28] MEDS: CHOLECALCIFEROL (VIT D3) 1,000 UNITS TABLET PO SCH (08:58)
[2019-04-28] MEDS: DOCUSATE SODIUM 100 MG CAPSULE PO SCH ×2 (08:58→20:41)
[2019-04-28] MEDS: VITAMIN E 400 UNITS CAPSULE PO SCH (08:58)
[2019-04-28] MEDS: CLOPIDOGREL BISULFATE 75 MG TABLET PO SCH (08:58)
[2019-04-28] MEDS: MULTIVITAMINS WITH MINERALS, THERAPEUTIC TABLET PO SCH (08:58)
[2019-04-28] MEDS: ASCORBIC ACID 500 MG TABLET PO SCH (08:58)
[2019-04-28] MEDS: OXYBUTYNIN CHLORIDE 5 MG ER TABLET PO SCH (09:06)
[2019-04-28] MEDS: PENTOXIFYLLINE 400 MG DR TABLET PO SCH ×2 (09:08→20:41)
[2019-04-28] MEDS: PANTOPRAZOLE SODIUM 40 MG DR TABLET PO SCH (09:09)
[2019-04-28] MEDS: HEPARIN SODIUM,PORCINE 5,000 UNITS/ML VIAL SQ SCH ×3 (09:12→23:45)
[2019-04-28] MEDS: POLYETHYLENE GLYCOL 3350 17 GM PACKET PO SCH (09:12)
[2019-04-28] MEDS: CefTRIAXone 1 GM/DEXTROSE 50 ML IV SCH (11:15)
[2019-04-28 14:06] VITALS: BP 126/69
[2019-04-28 17:00] VITALS: BP 136/75
[2019-04-28] MEDS: NYSTATIN 15 GM POWDER BOTTLE TP SCH ×2 (17:09→20:42)
[2019-04-28] MEDS: SILVER 45 ML GEL TP SCH (17:10)
[2019-04-28 19:45] VITALS: BP 151/85
[2019-04-28 23:30] VITALS: BP 136/73
[2019-04-29 05:00] VITALS: BP 126/65
[2019-04-29] MEDS: LEVOTHYROXINE SODIUM 50 MCG TABLET PO SCH (06:35)
[2019-04-29 07:36] LABS: BASOPHILS % (AUTO) 0.7 % (0.0-2.0); EOSINOPHILS % (AUTO) 1.2 % (1.0-6.0); HEMATOCRIT 28.4 % (36-46); HEMOGLOBIN 9.9 g/dL (12.0-16.0); LYMPHOCYTES # (AUTO) 1.6 K/uL (1.0-4.8); LYMPHOCYTES % (AUTO) 27.4 % (22.0-44.0); MEAN CORPUSCULAR HEMOGLOBIN 35.1 pg (26.0-34.0); MEAN CORPUSCULAR HGB CONC 34.8 G/dL (31.0-37.0); MEAN CORPUSCULAR VOLUME 101 fL (80-100); MONOCYTES # (AUTO) 0.4 K/uL (0.1-1.0); MONOCYTES % (AUTO) 7.1 % (2.0-9.0); NEUTROPHILS # (AUTO) 3.8 K/uL (1.8-7.7); NEUTROPHILS % (AUTO) 63.6 % (40.0-70.0); PLATELET COUNT (AUTO) 203 K/uL (150-450); RED BLOOD CELL COUNT(AUTO) 2.82 MIL/uL (4.00-5.20)
[2019-04-29 07:45] LABS: ANION GAP 9 mmol/L (8-16); CALCIUM, TOTAL 9.8 mg/dL (8.8-10.5); CARBON DIOXIDE 24 mmol/L (22-29); CHLORIDE 110 mmol/L (98-107); CREATININE 0.47 mg/dL (0.60-1.30); GLOMERULAR FILTR. RATE CALC > 60 mL/min (>60); GLUCOSE,RANDOM 90 mg/dL (70-110); POTASSIUM 3.6 mmol/L (3.5-5.1); SODIUM SERUM 143 mmol/L (136-145); UREA NITROGEN, BLOOD 10 mg/dL (7-18)
[2019-04-29 07:57] VITALS: BP 132/71
[2019-04-29] MEDS: CLOPIDOGREL BISULFATE 75 MG TABLET PO SCH (08:28)
[2019-04-29] MEDS: VITAMIN E 400 UNITS CAPSULE PO SCH (08:28)
[2019-04-29] MEDS: ASCORBIC ACID 500 MG TABLET PO SCH (08:28)
[2019-04-29] MEDS: PANTOPRAZOLE SODIUM 40 MG DR TABLET PO SCH (08:28)
[2019-04-29] MEDS: POLYETHYLENE GLYCOL 3350 17 GM PACKET PO SCH (08:28)
[2019-04-29] MEDS: MULTIVITAMINS WITH MINERALS, THERAPEUTIC TABLET PO SCH (08:28)
[2019-04-29] MEDS: CHOLECALCIFEROL (VIT D3) 1,000 UNITS TABLET PO SCH (08:28)
[2019-04-29] MEDS: OXYBUTYNIN CHLORIDE 5 MG ER TABLET PO SCH (08:28)
[2019-04-29] MEDS: PENTOXIFYLLINE 400 MG DR TABLET PO SCH ×2 (08:28→20:35)
[2019-04-29] MEDS: DOCUSATE SODIUM 100 MG CAPSULE PO SCH ×2 (08:29→20:35)
[2019-04-29] MEDS: HEPARIN SODIUM,PORCINE 5,000 UNITS/ML VIAL SQ SCH ×3 (08:29→23:13)
[2019-04-29] MEDS: CefTRIAXone 1 GM/DEXTROSE 50 ML IV SCH (11:26)
[2019-04-29 11:37] VITALS: BP 126/68
[2019-04-29] MEDS: NYSTATIN 15 GM POWDER BOTTLE TP SCH ×2 (12:27→20:35)
[2019-04-29] MEDS: SILVER 45 ML GEL TP SCH (12:27)
[2019-04-29 16:00] VITALS: BP 130/69
[2019-04-29 19:00] VITALS: BP 140/79
[2019-04-29 23:36] VITALS: BP 133/76
[2019-04-30 04:00] VITALS: BP 141/78
[2019-04-30] MEDS: LEVOTHYROXINE SODIUM 50 MCG TABLET PO SCH (06:11)
[2019-04-30 06:18] LABS: BASOPHILS % (AUTO) 0.2 % (0.0-2.0); EOSINOPHILS % (AUTO) 3.8 % (1.0-6.0); HEMATOCRIT 28.2 % (36-46); HEMOGLOBIN 9.4 g/dL (12.0-16.0); LYMPHOCYTES # (AUTO) 1.6 K/uL (1.0-4.8); MEAN CORPUSCULAR HEMOGLOBIN 33.5 pg (26.0-34.0); MEAN CORPUSCULAR HGB CONC 33.3 G/dL (31.0-37.0); MEAN CORPUSCULAR VOLUME 101 fL (80-100); MONOCYTES # (AUTO) 0.5 K/uL (0.1-1.0); MONOCYTES % (AUTO) 9.3 % (2.0-9.0); NEUTROPHILS # (AUTO) 3.3 K/uL (1.8-7.7); NEUTROPHILS % (AUTO) 58.7 % (40.0-70.0); PLATELET COUNT (AUTO) 206 K/uL (150-450); RED CELL DISTRIBUTION WIDTH 14.3 % (11.5-14.5)
[2019-04-30 06:39] LABS: ANION GAP 7 mmol/L (8-16); CALCIUM, TOTAL 9.4 mg/dL (8.8-10.5); CARBON DIOXIDE 26 mmol/L (22-29); CHLORIDE 107 mmol/L (98-107); CREATININE 0.31 mg/dL (0.60-1.30); GLUCOSE,RANDOM 86 mg/dL (70-110); POTASSIUM 3.8 mmol/L (3.5-5.1); SODIUM SERUM 140 mmol/L (136-145); UREA NITROGEN, BLOOD 9 mg/dL (7-18)
[2019-04-30 06:51] LABS: GLOMERULAR FILTR. RATE CALC > 60 mL/min (>60)
[2019-04-30 07:47] VITALS: BP 126/65
[2019-04-30] MEDS: HEPARIN SODIUM,PORCINE 5,000 UNITS/ML VIAL SQ SCH (08:00)
[2019-04-30] MEDS: DOCUSATE SODIUM 100 MG CAPSULE PO SCH (09:00)
[2019-04-30] MEDS: POLYETHYLENE GLYCOL 3350 17 GM PACKET PO SCH (09:00)
[2019-04-30] MEDS: VITAMIN E 400 UNITS CAPSULE PO SCH (09:00)
[2019-04-30] MEDS: NYSTATIN 15 GM POWDER BOTTLE TP SCH (09:00)
[2019-04-30] MEDS: PANTOPRAZOLE SODIUM 40 MG DR TABLET PO SCH (09:00)
[2019-04-30] MEDS: PENTOXIFYLLINE 400 MG DR TABLET PO SCH (09:00)
[2019-04-30] MEDS: CHOLECALCIFEROL (VIT D3) 1,000 UNITS TABLET PO SCH (09:00)
[2019-04-30] MEDS: OXYBUTYNIN CHLORIDE 5 MG ER TABLET PO SCH (09:00)
[2019-04-30] MEDS: SILVER 45 ML GEL TP SCH (09:00)
[2019-04-30] MEDS: ASCORBIC ACID 500 MG TABLET PO SCH (09:00)
[2019-04-30] MEDS: CLOPIDOGREL BISULFATE 75 MG TABLET PO SCH (09:00)
[2019-04-30] MEDS: MULTIVITAMINS WITH MINERALS, THERAPEUTIC TABLET PO SCH (09:00)
[2019-04-30 11:34] VITALS: BP 107/60
[2019-04-30] MEDS ORDERED: CEPH-582 PO (11:34)
[2019-04-30] MEDS ORDERED: [UNRECOGNIZED DRUG - OTHER] PO (11:34)
[2019-04-30] MEDS: CefTRIAXone 1 GM/DEXTROSE 50 ML IV SCH (12:15)
== END 2019-04-30 14:42 | disposition home or self-care (01) | DRG 682 ==
LOC: EMS 11:08 → 4E 18:23
PROVIDERS: ADMIT Internal Medicine; ATTEND Internal Medicine
DX: N17.9 Acute kidney failure, unspecified (principal); E43 Unspecified severe protein-calorie malnutrition; N39.0 Urinary tract infection, site not specified; I95.9 Hypotension, unspecified; N31.9 Neuromuscular dysfunction of bladder, unspecified; I10 Essential (primary) hypertension; G35 Multiple sclerosis; G89.29 Other chronic pain; R53.1 Weakness; K59.00 Constipation, unspecified; L89.90 Pressure ulcer of unspecified site, unspecified stage; Z74.01 Bed confinement status; Z88.0 Allergy status to penicillin; Z88.6 Allergy status to analgesic agent; Z88.8 Allergy status to other drugs, medicaments and biological substances; Z68.22 Body mass index [BMI] 22.0-22.9, adult; Z90.49 Acquired absence of other specified parts of digestive tract; Z87.01 Personal history of pneumonia (recurrent); Z87.440 Personal history of urinary (tract) infections
CPT/HCPCS: 70450; 70551; 74018; 74177; 84145; 84439; 84443; 87086; 93005; 97162; 97167; 97530; 97535; G0378; J0696; J1644; J1956; J2405; J7030; J7040; J7050

== ENCOUNTER 2019-06-28 07:31 | Inpatient (IN) | payer MEDICARE, OTHER ==
[~2019-06-28] VITALS: Ht 170.2 cm; Wt 62.0 kg
[~2019-06-28 07:31] MED LIST changes: +AMIO100T4 PO; +CEFU500T41 PO; +CHOL100018 PO; -DICL2100G TP; +DIPH25CA53 PO; -DOCU-202 PO; +DOCU-342 PO; +FURO40 PO; +GABA-533 PO; -LEVO50 PO; +LEVO50TA11 PO; -NACL1 PO; +OXYB5XL PO; +PENT400T37 PO; -SODI473S21 TP; +[UNRECOGNIZED DRUG - OTHER] PO
[2019-06-28] MEDS ORDERED: OXYB5XL PO (08:30)
[2019-06-28 09:13] LABS: BASOPHILS % (AUTO) 0.6 % (0.0-2.0); EOSINOPHILS % (AUTO) 2.5 % (1.0-6.0); HEMATOCRIT 32.4 % (36-46); HEMOGLOBIN 10.9 g/dL (12.0-16.0); LYMPHOCYTES # (AUTO) 1.1 K/uL (1.0-4.8); LYMPHOCYTES % (AUTO) 21.5 % (22.0-44.0); MEAN CORPUSCULAR HEMOGLOBIN 34.2 pg (26.0-34.0); MEAN CORPUSCULAR HGB CONC 33.6 G/dL (31.0-37.0); MEAN CORPUSCULAR VOLUME 102 fL (80-100); MONOCYTES # (AUTO) 0.4 K/uL (0.1-1.0); NEUTROPHILS # (AUTO) 3.3 K/uL (1.8-7.7); NEUTROPHILS % (AUTO) 67.4 % (40.0-70.0); PLATELET COUNT (AUTO) 205 K/uL (150-450); RED BLOOD CELL COUNT(AUTO) 3.18 MIL/uL (4.00-5.20); RED CELL DISTRIBUTION WIDTH 15.1 % (11.5-14.5)
[2019-06-28] MEDS ORDERED: SODIUM CHLORIDE 0.9% 100 ML ONE (09:26)
[2019-06-28] MEDS ORDERED: IOVERSOL 350 MG/ML 100 ML VIAL ONE (09:26)
[2019-06-28 09:41] LABS: ANION GAP 9 mmol/L (8-16); CALCIUM, TOTAL 10.2 mg/dL (8.8-10.5); CARBON DIOXIDE 29 mmol/L (22-29); CHLORIDE 97 mmol/L (98-107); CREATININE 0.74 mg/dL (0.60-1.30); GLUCOSE,RANDOM 93 mg/dL (70-110); POTASSIUM 3.5 mmol/L (3.5-5.1); SODIUM SERUM 135 mmol/L (136-145); UREA NITROGEN, BLOOD 10 mg/dL (7-18)
[2019-06-28 09:45] LABS: GLOMERULAR FILTR. RATE CALC > 60 mL/min (>60)
[2019-06-28 09:47] LABS: LACTIC ACID 1.3 mmol/L (0.4-2.0)
[2019-06-28 09:53] LABS: ALANINE AMINOTRANSFERASE 10 U/L (12-78); ALBUMIN 3.1 g/dL (3.4-5.0); ALKALINE PHOSPHATASE 93 U/L (46-116); ASPARTATE AMINOTRANSFERASE 14 U/L (15-37); BILIRUBIN,TOTAL 0.7 mg/dL (0.1-1.0); CREATINE KINASE, TOTAL ONLY 28 U/L (26-192); LIPASE 73 U/L (73-393); TOTAL PROTEIN, SERUM 7.5 g/dL (6.4-8.2)
[2019-06-28 10:56] LABS: APPEARANCE,URINE CLOUDY (CLEAR); GLUCOSE, URINE (UA) NEGATIVE (NEGATIVE); KETONES,URINE 40 mg/dL (NEGATIVE); LEUKOCYTE ESTERASE ,URINE LARGE (NEGATIVE); NITRATE,URINE POSITIVE (NEGATIVE); OCCULT BLOOD,URINE SMALL (NEGATIVE); PH,URINE 7.5 (5.0-8.0); PROTEIN,URINE POS 1+ (NEGATIVE)
[2019-06-28 10:57] LABS: BILIRUBIN,URINE PRELIM. POSITIVE (NEGATIVE)
[2019-06-28] MEDS ORDERED: SODIUM CHLORIDE 0.9% 1,000 ML IV ONE (11:00)
[2019-06-28 11:03] LABS: BACTERIA,URINE Many /HPF (None Seen); RBC,URINE 51-100 /HPF (0-2); RENAL EPITHELIAL CELLS,URINE Rare /LPF (None Seen); WBC,URINE >100 /HPF (0-5)
[2019-06-28 11:08] LABS: SQUAMOUS EPITHELIAL CELL,UR Many /LPF (None Seen); YEAST,URINE Moderate /HPF (None Seen)
[2019-06-28 11:09] LABS: CALCIUM OXALATE CRYSTALS,UR Few /LPF (None Seen)
[2019-06-28] MEDS ORDERED: ONDANSETRON HCL 4 MG/2 ML VIAL IVP ONE (11:45)
[2019-06-28] MEDS ORDERED: KETOROLAC TROMETHAMINE 30 MG/ML VIAL IVP ONE (11:45)
[2019-06-28] MEDS ORDERED: ONDANSETRON HCL 4 MG/2 ML VIAL IVP PRN (12:15)
[2019-06-28] MEDS ORDERED: ACETAMINOPHEN 325 MG TABLET PO PRN (12:15)
[2019-06-28 14:17] VITALS: BP 134/72
[2019-06-28 19:33] VITALS: BP 113/51
[2019-06-28 23:13] VITALS: BP 109/53
[2019-06-29] MEDS ORDERED: 0.9% SODIUM CHLORIDE 10 ML SYRINGE IVP PRN (04:15)
[2019-06-29] MEDS: LEVOFLOXACIN 500 MG/D5% WATER 100 ML IV SCH (05:07)
[2019-06-29 06:03] VITALS: BP 107/62
[2019-06-29] MEDS: LEVOTHYROXINE SODIUM 50 MCG TABLET PO SCH (06:40)
[2019-06-29 07:34] VITALS: BP 93/52
[2019-06-29] MEDS: LISINOPRIL 10 MG TABLET PO SCH (08:01)
[2019-06-29] MEDS: FUROSEMIDE 40 MG TABLET PO SCH (08:01)
[2019-06-29] MEDS: AMIODARONE HCL 200 MG TABLET PO SCH (08:01)
[2019-06-29] MEDS: DOCUSATE SODIUM 100 MG CAPSULE PO SCH ×2 (08:45→21:00)
[2019-06-29] MEDS: FAMOTIDINE 10 MG/ML 2 ML VIAL IVP SCH (08:45)
[2019-06-29] MEDS: VANCOMYCIN HCL 750 MG in DEXTROSE 5%-WATER 250 ML IV SCH ×2 (08:45→19:38)
[2019-06-29] MEDS: CLOPIDOGREL BISULFATE 75 MG TABLET PO SCH (08:45)
[2019-06-29 11:10] VITALS: BP 129/68
[2019-06-29] MEDS: SILVER 45 ML GEL TP SCH (13:35)
[2019-06-29 16:00] VITALS: BP 124/61
[2019-06-29 20:21] VITALS: BP 123/69
[2019-06-30 00:01] VITALS: BP 121/65
[2019-06-30 04:29] VITALS: BP 101/61
[2019-06-30] MEDS: LEVOFLOXACIN 500 MG/D5% WATER 100 ML IV SCH (04:30)
[2019-06-30] MEDS: LEVOTHYROXINE SODIUM 50 MCG TABLET PO SCH (05:36)
[2019-06-30] MEDS ORDERED: SODIUM CHLORIDE 0.9% 1,000 ML ONE (06:09)
[2019-06-30 07:12] LABS: BASOPHILS % (AUTO) 0.8 % (0.0-2.0); EOSINOPHILS % (AUTO) 6.9 % (1.0-6.0); HEMATOCRIT 26.9 % (36-46); LYMPHOCYTES # (AUTO) 1.3 K/uL (1.0-4.8); LYMPHOCYTES % (AUTO) 32.7 % (22.0-44.0); MEAN CORPUSCULAR HEMOGLOBIN 33.9 pg (26.0-34.0); MEAN CORPUSCULAR HGB CONC 33.4 G/dL (31.0-37.0); MEAN CORPUSCULAR VOLUME 102 fL (80-100); MONOCYTES # (AUTO) 0.4 K/uL (0.1-1.0); MONOCYTES % (AUTO) 8.7 % (2.0-9.0); NEUTROPHILS % (AUTO) 50.9 % (40.0-70.0); PLATELET COUNT (AUTO) 195 K/uL (150-450); RED BLOOD CELL COUNT(AUTO) 2.65 MIL/uL (4.00-5.20); RED CELL DISTRIBUTION WIDTH 14.9 % (11.5-14.5)
[2019-06-30 07:26] LABS: ANION GAP 9 mmol/L (8-16); CALCIUM, TOTAL 8.8 mg/dL (8.8-10.5); CARBON DIOXIDE 25 mmol/L (22-29); CHLORIDE 100 mmol/L (98-107); CREATININE 0.52 mg/dL (0.60-1.30); GLUCOSE,RANDOM 97 mg/dL (70-110); PHOSPHORUS 2.2 mg/dL (2.5-4.9); POTASSIUM 3.7 mmol/L (3.5-5.1); SODIUM SERUM 134 mmol/L (136-145); UREA NITROGEN, BLOOD 6 mg/dL (7-18)
[2019-06-30 07:27] LABS: GLOMERULAR FILTR. RATE CALC > 60 mL/min (>60)
[2019-06-30] MEDS: CLOPIDOGREL BISULFATE 75 MG TABLET PO SCH (07:58)
[2019-06-30] MEDS: LISINOPRIL 10 MG TABLET PO SCH (07:58)
[2019-06-30] MEDS: FUROSEMIDE 40 MG TABLET PO SCH (07:58)
[2019-06-30] MEDS: AMIODARONE HCL 200 MG TABLET PO SCH (08:00)
[2019-06-30] MEDS: FAMOTIDINE 10 MG/ML 2 ML VIAL IVP SCH (08:02)
[2019-06-30 08:12] VITALS: BP 124/68
[2019-06-30] MEDS: VANCOMYCIN HCL 750 MG in DEXTROSE 5%-WATER 250 ML IV SCH (08:14)
[2019-06-30] MEDS: DOCUSATE SODIUM 100 MG CAPSULE PO SCH ×2 (08:14→20:14)
[2019-06-30] MEDS ORDERED: FOLI1 PO (12:43)
[2019-06-30] MEDS ORDERED: *CLINICAL-RX DOSING [ENTER DRUG IN COMMENTS] CLINICAL ONE (12:45)
[2019-06-30] MEDS ORDERED: *CLINICAL-RENAL DOSING MEDICATIONS CLINICAL ONE (12:45)
[2019-06-30] MEDS: SILVER 45 ML GEL TP SCH (13:59)
[2019-06-30] MEDS: ACETAMINOPHEN 325 MG TABLET PO PRN (14:00)
[2019-06-30] MEDS ORDERED: CefTAZidime PENTAHYDRATE 2 GM in DEXTROSE 5%-WATER 50 ML IV SCH (14:00)
[2019-06-30] MEDS: DAPTOMYCIN 350 MG in SODIUM CHLORIDE 0.9% 50 ML IV SCH (15:56)
[2019-06-30 16:09] VITALS: BP 117/52
[2019-06-30 19:46] VITALS: BP 133/66
[2019-07-01] VITALS (7 sets, daily range): BP systolic 105–121; BP diastolic 55–80
[2019-07-01] MEDS: LEVOTHYROXINE SODIUM 50 MCG TABLET PO SCH (06:23)
[2019-07-01 07:55] LABS: ANION GAP 10 mmol/L (8-16); CALCIUM, TOTAL 8.9 mg/dL (8.8-10.5); CARBON DIOXIDE 24 mmol/L (22-29); CHLORIDE 102 mmol/L (98-107); CREATININE 0.49 mg/dL (0.60-1.30); GLUCOSE,RANDOM 76 mg/dL (70-110); POTASSIUM 3.5 mmol/L (3.5-5.1); SODIUM SERUM 136 mmol/L (136-145); UREA NITROGEN, BLOOD 5 mg/dL (7-18); VANCOMYCIN,RANDOM 14.2 mcg/mL (25.0-50.0)
[2019-07-01 07:56] LABS: GLOMERULAR FILTR. RATE CALC > 60 mL/min (>60)
[2019-07-01] MEDS: CLOPIDOGREL BISULFATE 75 MG TABLET PO SCH (07:56)
[2019-07-01] MEDS: FAMOTIDINE 10 MG/ML 2 ML VIAL IVP SCH (07:56)
[2019-07-01] MEDS: FUROSEMIDE 40 MG TABLET PO SCH (07:56)
[2019-07-01] MEDS: DOCUSATE SODIUM 100 MG CAPSULE PO SCH ×2 (07:56→20:16)
[2019-07-01] MEDS: LISINOPRIL 10 MG TABLET PO SCH (07:57)
[2019-07-01] MEDS: SILVER 45 ML GEL TP SCH (07:57)
[2019-07-01] MEDS: AMIODARONE HCL 200 MG TABLET PO SCH (07:59)
[2019-07-01] MEDS ORDERED: SILVER 45 ML GEL TP SCH (09:00)
[2019-07-01] MEDS: CefTAZidime PENTAHYDRATE 2 GM in DEXTROSE 5%-WATER 50 ML IV SCH ×2 (13:13→20:16)
[2019-07-01] MEDS: DAPTOMYCIN 350 MG in SODIUM CHLORIDE 0.9% 50 ML IV SCH (16:24)
[2019-07-02] MEDS: CefTAZidime PENTAHYDRATE 2 GM in DEXTROSE 5%-WATER 50 ML IV SCH ×3 (04:55→20:50)
[2019-07-02 05:09] VITALS: BP 103/68
[2019-07-02] MEDS: LEVOTHYROXINE SODIUM 50 MCG TABLET PO SCH (06:08)
[2019-07-02 07:30] LABS: PROTHROMBIN TIME 10.7 SEC (9.4-11.6)
[2019-07-02 08:20] VITALS: BP 134/70
[2019-07-02] MEDS: LISINOPRIL 10 MG TABLET PO SCH ×2 (08:35→09:00)
[2019-07-02] MEDS: FAMOTIDINE 10 MG/ML 2 ML VIAL IVP SCH (08:35)
[2019-07-02] MEDS: DOCUSATE SODIUM 100 MG CAPSULE PO SCH ×3 (08:35→20:51)
[2019-07-02] MEDS: CLOPIDOGREL BISULFATE 75 MG TABLET PO SCH ×2 (08:35→09:00)
[2019-07-02] MEDS: AMIODARONE HCL 200 MG TABLET PO SCH ×2 (08:35→09:00)
[2019-07-02] MEDS: FUROSEMIDE 40 MG TABLET PO SCH ×2 (08:35→09:00)
[2019-07-02] MEDS: SILVER 45 ML GEL TP SCH ×2 (08:36→09:00)
[2019-07-02 11:33] VITALS: BP 122/62
[2019-07-02] MEDS: DAPTOMYCIN 350 MG in SODIUM CHLORIDE 0.9% 50 ML IV SCH (17:31)
[2019-07-02 19:41] VITALS: BP 126/56
[2019-07-02] MEDS ORDERED: SODIUM CHLORIDE 0.9% 500 ML IV ONE (22:51)
[2019-07-03] VITALS: BP 121/69
[2019-07-03 04:00] VITALS: BP 122/87
[2019-07-03] MEDS: CefTAZidime PENTAHYDRATE 2 GM in DEXTROSE 5%-WATER 50 ML IV SCH ×3 (05:52→19:53)
[2019-07-03 07:43] VITALS: BP 121/61
[2019-07-03] MEDS: CLOPIDOGREL BISULFATE 75 MG TABLET PO SCH (09:00)
[2019-07-03 11:51] VITALS: BP 128/66
[2019-07-03 16:02] VITALS: BP 107/63
[2019-07-03] MEDS: FAMOTIDINE 10 MG/ML 2 ML VIAL IVP SCH (17:11)
[2019-07-03] MEDS: AMIODARONE HCL 200 MG TABLET PO SCH (17:11)
[2019-07-03] MEDS: DOCUSATE SODIUM 100 MG CAPSULE PO SCH ×2 (17:11→19:55)
[2019-07-03] MEDS: FUROSEMIDE 40 MG TABLET PO SCH (17:11)
[2019-07-03] MEDS: LISINOPRIL 10 MG TABLET PO SCH (17:11)
[2019-07-03] MEDS: SILVER 45 ML GEL TP SCH (17:18)
[2019-07-03] MEDS: DAPTOMYCIN 350 MG in SODIUM CHLORIDE 0.9% 50 ML IV SCH (17:18)
[2019-07-03 19:55] VITALS: BP 106/62
[2019-07-03] MEDS: TraMADol HCL 50 MG TABLET PO PRN (19:59)
[2019-07-04] VITALS (8 sets, daily range): BP systolic 99–115; BP diastolic 50–78
[2019-07-04] MEDS: CefTAZidime PENTAHYDRATE 2 GM in DEXTROSE 5%-WATER 50 ML IV SCH ×3 (04:13→19:52)
[2019-07-04] MEDS: ONDANSETRON HCL 4 MG/2 ML VIAL IVP PRN ×2 (05:38→17:06)
[2019-07-04] MEDS: LEVOTHYROXINE SODIUM 50 MCG TABLET PO SCH (06:02)
[2019-07-04] MEDS: ACETAMINOPHEN 325 MG TABLET PO PRN (08:30)
[2019-07-04] MEDS: HYDROCODONE/ACETAMINOPHEN 5-325 MG TABLET PO PRN ×2 (10:26→18:00)
[2019-07-04] MEDS: CLOPIDOGREL BISULFATE 75 MG TABLET PO SCH (11:17)
[2019-07-04] MEDS: AMIODARONE HCL 200 MG TABLET PO SCH (11:17)
[2019-07-04] MEDS: DOCUSATE SODIUM 100 MG CAPSULE PO SCH ×2 (11:18→19:51)
[2019-07-04] MEDS: FUROSEMIDE 40 MG TABLET PO SCH (11:18)
[2019-07-04] MEDS: LISINOPRIL 10 MG TABLET PO SCH (11:18)
[2019-07-04] MEDS: FAMOTIDINE 10 MG/ML 2 ML VIAL IVP SCH (11:18)
[2019-07-04] MEDS: TraMADol HCL 50 MG TABLET PO PRN (11:18)
[2019-07-04] MEDS: DAPTOMYCIN 350 MG in SODIUM CHLORIDE 0.9% 50 ML IV SCH (15:03)
[2019-07-04] MEDS: SILVER 45 ML GEL TP SCH (18:02)
[2019-07-04] MEDS: HEPARIN SODIUM,PORCINE 5,000 UNITS/ML VIAL SQ SCH (19:51)
[2019-07-04] MEDS: GABAPENTIN 100 MG CAPSULE PO SCH (19:52)
[2019-07-05] MEDS: LEVOTHYROXINE SODIUM 50 MCG TABLET PO SCH (05:06)
[2019-07-05 05:28] VITALS: BP 112/62
[2019-07-05] MEDS: CefTAZidime PENTAHYDRATE 2 GM in DEXTROSE 5%-WATER 50 ML IV SCH ×3 (05:31→21:29)
[2019-07-05] MEDS ORDERED: RINGERS SOLUTION,LACTATED 1,000 ML IV ONE ×2 (06:43→07:00)
[2019-07-05] MEDS ORDERED: BUPIVACAINE 0.25%/EPI 1:200,000/PF 10 ML VIAL ONE ×2 (07:47)
[2019-07-05] MEDS: SILVER 45 ML GEL TP SCH (09:00)
[2019-07-05 10:23] VITALS: BP 129/56
[2019-07-05] MEDS: FAMOTIDINE 10 MG/ML 2 ML VIAL IVP SCH (10:39)
[2019-07-05] MEDS: ONDANSETRON HCL 4 MG/2 ML VIAL IVP PRN (10:39)
[2019-07-05] MEDS: HEPARIN SODIUM,PORCINE 5,000 UNITS/ML VIAL SQ SCH ×2 (10:39→21:29)
[2019-07-05] MEDS: MULTIVITAMINS WITH MINERALS, THERAPEUTIC TABLET PO SCH (10:40)
[2019-07-05] MEDS: CLOPIDOGREL BISULFATE 75 MG TABLET PO SCH (10:40)
[2019-07-05] MEDS: AMIODARONE HCL 200 MG TABLET PO SCH (10:41)
[2019-07-05] MEDS: LISINOPRIL 10 MG TABLET PO SCH (10:41)
[2019-07-05] MEDS: FUROSEMIDE 40 MG TABLET PO SCH (10:41)
[2019-07-05] MEDS: DOCUSATE SODIUM 100 MG CAPSULE PO SCH ×2 (10:41→21:29)
[2019-07-05] MEDS: GABAPENTIN 100 MG CAPSULE PO SCH ×2 (10:41→21:29)
[2019-07-05 11:23] LABS: BASOPHILS % (AUTO) 0.9 % (0.0-2.0); EOSINOPHILS % (AUTO) 2.5 % (1.0-6.0); HEMATOCRIT 28.4 % (36-46); HEMOGLOBIN 9.4 g/dL (12.0-16.0); LYMPHOCYTES # (AUTO) 1.2 K/uL (1.0-4.8); LYMPHOCYTES % (AUTO) 25.9 % (22.0-44.0); MEAN CORPUSCULAR HEMOGLOBIN 33.7 pg (26.0-34.0); MEAN CORPUSCULAR HGB CONC 33.2 G/dL (31.0-37.0); MEAN CORPUSCULAR VOLUME 102 fL (80-100); MONOCYTES # (AUTO) 0.3 K/uL (0.1-1.0); MONOCYTES % (AUTO) 7.3 % (2.0-9.0); NEUTROPHILS # (AUTO) 2.9 K/uL (1.8-7.7); NEUTROPHILS % (AUTO) 63.4 % (40.0-70.0); PLATELET COUNT (AUTO) 235 K/uL (150-450); RED BLOOD CELL COUNT(AUTO) 2.79 MIL/uL (4.00-5.20); RED CELL DISTRIBUTION WIDTH 15.2 % (11.5-14.5)
[2019-07-05 11:24] VITALS: BP 144/62
[2019-07-05 11:43] LABS: ANION GAP 10 mmol/L (8-16); CALCIUM, TOTAL 8.8 mg/dL (8.8-10.5); CARBON DIOXIDE 27 mmol/L (22-29); CHLORIDE 101 mmol/L (98-107); CREATININE 0.67 mg/dL (0.60-1.30); GLUCOSE,RANDOM 94 mg/dL (70-110); POTASSIUM 3.7 mmol/L (3.5-5.1); SODIUM SERUM 138 mmol/L (136-145); UREA NITROGEN, BLOOD 6 mg/dL (7-18)
[2019-07-05 11:56] LABS: GLOMERULAR FILTR. RATE CALC > 60 mL/min (>60)
[2019-07-05] MEDS ORDERED: PROPOFOL 1% 20 ML VIAL IVP ONE (12:00)
[2019-07-05] MEDS ORDERED: LIDOCAINE/PF 2% 5 ML SYRINGE IVP ONE (12:00)
[2019-07-05] MEDS ORDERED: KETAMINE HCL 50 MG/ML 10 ML VIAL IVP ONE (12:00)
[2019-07-05 15:42] VITALS: BP 124/72
[2019-07-05] MEDS: DAPTOMYCIN 350 MG in SODIUM CHLORIDE 0.9% 50 ML IV SCH (18:12)
[2019-07-05 19:30] VITALS: BP 122/68
[2019-07-06 05:00] VITALS: BP 128/52
[2019-07-06] MEDS: CefTAZidime PENTAHYDRATE 2 GM in DEXTROSE 5%-WATER 50 ML IV SCH ×3 (05:44→20:57)
[2019-07-06] MEDS: LEVOTHYROXINE SODIUM 50 MCG TABLET PO SCH (05:44)
[2019-07-06] MEDS ORDERED: SODIUM CHLORIDE 0.9% 250 ML IV ONE (05:47)
[2019-07-06 07:50] VITALS: BP 95/52
[2019-07-06] MEDS: OXYGEN THERAPY IH SCH (08:00)
[2019-07-06] MEDS: LISINOPRIL 10 MG TABLET PO SCH (09:00)
[2019-07-06] MEDS: SILVER 45 ML GEL TP SCH (09:04)
[2019-07-06] MEDS: DOCUSATE SODIUM 100 MG CAPSULE PO SCH ×2 (09:05→20:58)
[2019-07-06] MEDS: FUROSEMIDE 40 MG TABLET PO SCH (09:05)
[2019-07-06] MEDS: MULTIVITAMINS WITH MINERALS, THERAPEUTIC TABLET PO SCH (09:05)
[2019-07-06] MEDS: HEPARIN SODIUM,PORCINE 5,000 UNITS/ML VIAL SQ SCH ×2 (09:05→20:58)
[2019-07-06] MEDS: AMIODARONE HCL 200 MG TABLET PO SCH (09:05)
[2019-07-06] MEDS: CLOPIDOGREL BISULFATE 75 MG TABLET PO SCH (09:05)
[2019-07-06] MEDS: GABAPENTIN 100 MG CAPSULE PO SCH ×2 (09:05→20:58)
[2019-07-06] MEDS: FAMOTIDINE 10 MG/ML 2 ML VIAL IVP SCH (09:06)
[2019-07-06 11:25] VITALS: BP 98/52
[2019-07-06 15:10] VITALS: BP 113/64
[2019-07-06] MEDS: TraMADol HCL 50 MG TABLET PO PRN (16:27)
[2019-07-06] MEDS: DAPTOMYCIN 350 MG in SODIUM CHLORIDE 0.9% 50 ML IV SCH (17:23)
[2019-07-06 20:49] VITALS: BP 104/53
[2019-07-07 04:56] VITALS: BP 101/60
[2019-07-07] MEDS: CefTAZidime PENTAHYDRATE 2 GM in DEXTROSE 5%-WATER 50 ML IV SCH ×3 (05:27→20:34)
[2019-07-07] MEDS: LEVOTHYROXINE SODIUM 50 MCG TABLET PO SCH (05:49)
[2019-07-07 07:30] VITALS: BP 105/57
[2019-07-07] MEDS: OXYGEN THERAPY IH SCH (08:00)
[2019-07-07] MEDS: GABAPENTIN 100 MG CAPSULE PO SCH ×2 (08:51→20:35)
[2019-07-07] MEDS: CLOPIDOGREL BISULFATE 75 MG TABLET PO SCH (08:51)
[2019-07-07] MEDS: MULTIVITAMINS WITH MINERALS, THERAPEUTIC TABLET PO SCH (08:51)
[2019-07-07] MEDS: HEPARIN SODIUM,PORCINE 5,000 UNITS/ML VIAL SQ SCH ×2 (08:51→20:34)
[2019-07-07] MEDS: DOCUSATE SODIUM 100 MG CAPSULE PO SCH ×2 (08:51→20:35)
[2019-07-07] MEDS: FUROSEMIDE 40 MG TABLET PO SCH (08:51)
[2019-07-07] MEDS: LISINOPRIL 10 MG TABLET PO SCH (09:00)
[2019-07-07] MEDS: AMIODARONE HCL 200 MG TABLET PO SCH (09:00)
[2019-07-07 09:03] LABS: BASOPHILS % (AUTO) 0.6 % (0.0-2.0); EOSINOPHILS % (AUTO) 5.7 % (1.0-6.0); HEMATOCRIT 29.7 % (36-46); HEMOGLOBIN 9.9 g/dL (12.0-16.0); LYMPHOCYTES # (AUTO) 1.5 K/uL (1.0-4.8); LYMPHOCYTES % (AUTO) 32.1 % (22.0-44.0); MEAN CORPUSCULAR HEMOGLOBIN 33.6 pg (26.0-34.0); MEAN CORPUSCULAR HGB CONC 33.3 G/dL (31.0-37.0); MEAN CORPUSCULAR VOLUME 101 fL (80-100); MONOCYTES # (AUTO) 0.5 K/uL (0.1-1.0); MONOCYTES % (AUTO) 10.3 % (2.0-9.0); NEUTROPHILS # (AUTO) 2.4 K/uL (1.8-7.7); NEUTROPHILS % (AUTO) 51.3 % (40.0-70.0); PLATELET COUNT (AUTO) 234 K/uL (150-450); RED BLOOD CELL COUNT(AUTO) 2.95 MIL/uL (4.00-5.20); RED CELL DISTRIBUTION WIDTH 15.2 % (11.5-14.5)
[2019-07-07] MEDS: FAMOTIDINE 10 MG/ML 2 ML VIAL IVP SCH (09:05)
[2019-07-07 09:19] LABS: ALANINE AMINOTRANSFERASE 7 U/L (12-78); ALBUMIN 2.2 g/dL (3.4-5.0); ALKALINE PHOSPHATASE 81 U/L (46-116); ANION GAP 7 mmol/L (8-16); ASPARTATE AMINOTRANSFERASE 15 U/L (15-37); BILIRUBIN,TOTAL 0.3 mg/dL (0.1-1.0); CALCIUM, TOTAL 9.2 mg/dL (8.8-10.5); CARBON DIOXIDE 29 mmol/L (22-29); CHLORIDE 100 mmol/L (98-107); CREATINE KINASE, TOTAL ONLY 37 U/L (26-192); CREATININE 0.91 mg/dL (0.60-1.30); GLOMERULAR FILTR. RATE CALC > 60 mL/min (>60); GLUCOSE,RANDOM 87 mg/dL (70-110); POTASSIUM 3.4 mmol/L (3.5-5.1); SODIUM SERUM 136 mmol/L (136-145); TOTAL PROTEIN, SERUM 6.4 g/dL (6.4-8.2); UREA NITROGEN, BLOOD 18 mg/dL (7-18)
[2019-07-07] MEDS ORDERED: SODIUM CHLORIDE 0.9% 250 ML IV ONE (10:16)
[2019-07-07 11:15] VITALS: BP 101/63
[2019-07-07 13:38] LABS: C-REACTIVE PROTEIN QUANT 0.82 mg/dL (0.00-0.30)
[2019-07-07] MEDS: SILVER 45 ML GEL TP SCH (13:41)
[2019-07-07 15:38] VITALS: BP 113/52
[2019-07-07] MEDS: DAPTOMYCIN 500 MG in SODIUM CHLORIDE 0.9% 50 ML IV SCH (17:18)
[2019-07-07 20:05] VITALS: BP 120/61
[2019-07-07 23:31] VITALS: BP 98/57
[2019-07-08] MEDS: CefTAZidime PENTAHYDRATE 2 GM in DEXTROSE 5%-WATER 50 ML IV SCH ×3 (05:25→20:53)
[2019-07-08] MEDS: LEVOTHYROXINE SODIUM 50 MCG TABLET PO SCH (05:28)
[2019-07-08 05:30] VITALS: BP 118/67
[2019-07-08] MEDS: TraMADol HCL 50 MG TABLET PO PRN (06:49)
[2019-07-08 07:30] VITALS: BP 104/51
[2019-07-08] MEDS: OXYGEN THERAPY IH SCH ×2 (08:00→20:00)
[2019-07-08] MEDS: MULTIVITAMINS WITH MINERALS, THERAPEUTIC TABLET PO SCH (08:02)
[2019-07-08] MEDS: FAMOTIDINE 10 MG/ML 2 ML VIAL IVP SCH (08:02)
[2019-07-08] MEDS: CLOPIDOGREL BISULFATE 75 MG TABLET PO SCH (08:02)
[2019-07-08] MEDS: DOCUSATE SODIUM 100 MG CAPSULE PO SCH ×3 (08:02→21:00)
[2019-07-08] MEDS: HEPARIN SODIUM,PORCINE 5,000 UNITS/ML VIAL SQ SCH ×2 (08:02→20:52)
[2019-07-08] MEDS: GABAPENTIN 100 MG CAPSULE PO SCH ×2 (08:02→20:52)
[2019-07-08 08:23] LABS: CALCIUM, TOTAL 9.9 mg/dL (8.8-10.5); CREATININE 1.16 mg/dL (0.60-1.30); POTASSIUM 3.6 mmol/L (3.5-5.1)
[2019-07-08] MEDS: AMIODARONE HCL 200 MG TABLET PO SCH (09:00)
[2019-07-08] MEDS: LISINOPRIL 10 MG TABLET PO SCH (09:00)
[2019-07-08] MEDS: SILVER 45 ML GEL TP SCH (09:12)
[2019-07-08] MEDS ORDERED: BISACODYL 10 MG RECTAL RECTAL SUPPOSITORY PR PRN (09:15)
[2019-07-08 11:20] VITALS: BP 110/58
[2019-07-08] MEDS: MINERAL OIL 30 ML UDCUP PO SCH (12:24)
[2019-07-08] MEDS: FUROSEMIDE 40 MG TABLET PO SCH (12:24)
[2019-07-08] MEDS ORDERED: SODIUM CHLORIDE 0.9% 250 ML IV ONE (14:53)
[2019-07-08 15:19] VITALS: BP 109/61
[2019-07-08] MEDS: DAPTOMYCIN 500 MG in SODIUM CHLORIDE 0.9% 50 ML IV SCH (15:45)
[2019-07-08 19:17] VITALS: BP 109/58
[2019-07-08 23:51] VITALS: BP 101/66
[2019-07-09 04:46] VITALS: BP 96/51
[2019-07-09] MEDS: CefTAZidime PENTAHYDRATE 2 GM in DEXTROSE 5%-WATER 50 ML IV SCH ×2 (05:14→13:04)
[2019-07-09] MEDS: LEVOTHYROXINE SODIUM 50 MCG TABLET PO SCH (05:30)
[2019-07-09] MEDS: SILVER 45 ML GEL TP SCH (09:00)
[2019-07-09] MEDS: GABAPENTIN 100 MG CAPSULE PO SCH (10:21)
[2019-07-09] MEDS: MINERAL OIL 30 ML UDCUP PO SCH (10:21)
[2019-07-09] MEDS: MULTIVITAMINS WITH MINERALS, THERAPEUTIC TABLET PO SCH (10:21)
[2019-07-09] MEDS: AMIODARONE HCL 200 MG TABLET PO SCH (10:21)
[2019-07-09] MEDS: CLOPIDOGREL BISULFATE 75 MG TABLET PO SCH (10:21)
[2019-07-09] MEDS: FAMOTIDINE 10 MG/ML 2 ML VIAL IVP SCH (10:21)
[2019-07-09] MEDS: FUROSEMIDE 40 MG TABLET PO SCH (10:21)
[2019-07-09] MEDS: DOCUSATE SODIUM 100 MG CAPSULE PO SCH (10:21)
[2019-07-09] MEDS: HEPARIN SODIUM,PORCINE 5,000 UNITS/ML VIAL SQ SCH (10:21)
[2019-07-09] MEDS: DAPTOMYCIN 500 MG in SODIUM CHLORIDE 0.9% 50 ML IV SCH (17:56)
[2019-07-10] MEDS ORDERED: AMIO200T6 PO (10:41)
[2019-07-10] MEDS ORDERED: CLOP75TA3 PO (10:41)
[2019-07-10] MEDS ORDERED: HEPA500018 SQ (10:41)
[2019-07-10] MEDS ORDERED: CefTAZidime PENTAHYDRATE 1 GM in DEXTROSE 5%-WATER 50 ML IV ONE (11:00)
== END 2019-07-09 19:00 | disposition home or self-care (01) | DRG 673 ==
LOC: EMS 07:32 → 6N 13:48
PROVIDERS: ADMIT Hospitalist; ATTEND Hospitalist
PROC: 0QB13ZX Excision of Sacrum, Percutaneous Approach, Diagnostic (ICD-10-PCS; principal; 2019-07-04)
PROC: 05HY33Z Insertion of Infusion Device into Upper Vein, Percutaneous Approach (ICD-10-PCS; 2019-07-05)
PROC: B54NZZA Ultrasonography of Left Upper Extremity Veins, Guidance (ICD-10-PCS; 2019-07-05)
DX: T83.518A Infection and inflammatory reaction due to other urinary catheter, initial encounter (principal); L89.154 Pressure ulcer of sacral region, stage 4; E43 Unspecified severe protein-calorie malnutrition; M46.28 Osteomyelitis of vertebra, sacral and sacrococcygeal region; Z16.21 Resistance to vancomycin; E87.1 Hypo-osmolality and hyponatremia; Z16.24 Resistance to multiple antibiotics; B95.2 Enterococcus as the cause of diseases classified elsewhere; R13.10 Dysphagia, unspecified; I48.91 Unspecified atrial fibrillation; G35 Multiple sclerosis; I11.0 Hypertensive heart disease with heart failure; B96.5 Pseudomonas (aeruginosa) (mallei) (pseudomallei) as the cause of diseases classified elsewhere; E03.9 Hypothyroidism, unspecified; I49.9 Cardiac arrhythmia, unspecified; I50.9 Heart failure, unspecified; D53.9 Nutritional anemia, unspecified; G89.4 Chronic pain syndrome; Y83.8 Other surgical procedures as the cause of abnormal reaction of the patient, or of later complication, without mention of misadventure at the time of the procedure; Z68.21 Body mass index [BMI] 21.0-21.9, adult; Z87.440 Personal history of urinary (tract) infections; Z74.01 Bed confinement status; E87.6 Hypokalemia; Z87.01 Personal history of pneumonia (recurrent); Z82.49 Family history of ischemic heart disease and other diseases of the circulatory system; Z90.49 Acquired absence of other specified parts of digestive tract; Z88.0 Allergy status to penicillin; Z88.6 Allergy status to analgesic agent; Z79.02 Long term (current) use of antithrombotics/antiplatelets; Y92.89 Other specified places as the place of occurrence of the external cause
CPT/HCPCS: 36245; 36569; 72197; 74177; 76937; 83605; 83735; 84100; 86140; 87040; 87070; 87086; 87205; 88307; 88311; 92610; 93005; J0713; J0878; J1644; J1885; J1956; J2405; J2704; J3370; J3490; J7030; J7040; J7050; J7060; J7120

== ENCOUNTER 2019-07-10 09:42 | Inpatient (IN) | payer MEDICARE, OTHER ==
[~2019-07-10] VITALS: Ht 170.2 cm; Wt 77.5 kg
[~2019-07-10 09:42] MED LIST changes: -CEFU500T41 PO; -FOLI0.4T14 PO; +FOLI1 PO
[2019-07-10] MEDS ORDERED: AMIO200T6 PO (10:41)
[2019-07-10] MEDS ORDERED: HEPA500018 SQ (10:41)
[2019-07-10] MEDS ORDERED: CLOP75TA3 PO (10:41)
[2019-07-10 10:50] LABS: BASOPHILS % (AUTO) 0.9 % (0.0-2.0); EOSINOPHILS % (AUTO) 0.1 % (1.0-6.0); HEMATOCRIT 29.4 % (36-46); HEMOGLOBIN 9.8 g/dL (12.0-16.0); LYMPHOCYTES # (AUTO) 0.8 K/uL (1.0-4.8); LYMPHOCYTES % (AUTO) 7.6 % (22.0-44.0); MEAN CORPUSCULAR HEMOGLOBIN 33.4 pg (26.0-34.0); MEAN CORPUSCULAR HGB CONC 33.3 G/dL (31.0-37.0); MEAN CORPUSCULAR VOLUME 100 fL (80-100); MONOCYTES # (AUTO) 0.7 K/uL (0.1-1.0); MONOCYTES % (AUTO) 6.4 % (2.0-9.0); NEUTROPHILS # (AUTO) 9.5 K/uL (1.8-7.7); PLATELET COUNT (AUTO) 224 K/uL (150-450); RED BLOOD CELL COUNT(AUTO) 2.93 MIL/uL (4.00-5.20); RED CELL DISTRIBUTION WIDTH 14.9 % (11.5-14.5)
[2019-07-10 11:13] LABS: INR 1.2 (0.9-1.1); PROTHROMBIN TIME 11.8 SEC (9.4-11.6)
[2019-07-10] MEDS ORDERED: SODIUM CHLORIDE 0.9% 1,000 ML IV ONE ×3 (11:30→13:00)
[2019-07-10 11:39] LABS: ANION GAP 11 mmol/L (8-16); CALCIUM, TOTAL 10.1 mg/dL (8.8-10.5); CARBON DIOXIDE 27 mmol/L (22-29); CHLORIDE 94 mmol/L (98-107); CREATININE 1.67 mg/dL (0.60-1.30); GLOMERULAR FILTR. RATE CALC 35 mL/min (>60); GLUCOSE,RANDOM 135 mg/dL (70-110); SODIUM SERUM 132 mmol/L (136-145); UREA NITROGEN, BLOOD 33 mg/dL (7-18)
[2019-07-10 11:45] LABS: INFLUENZA TYPE A NEGATIVE FOR TYPE A (NEGATIVE); INFLUENZA TYPE B NEGATIVE FOR TYPE B (NEGATIVE)
[2019-07-10] MEDS ORDERED: CefTAZidime PENTAHYDRATE 1 GM in DEXTROSE 5%-WATER 50 ML IV ONE (11:45)
[2019-07-10 11:50] LABS: ALANINE AMINOTRANSFERASE 9 U/L (12-78); ALBUMIN 1.9 g/dL (3.4-5.0); ALKALINE PHOSPHATASE 91 U/L (46-116); ASPARTATE AMINOTRANSFERASE 23 U/L (15-37); BILIRUBIN,TOTAL 0.5 mg/dL (0.1-1.0); C-REACTIVE PROTEIN QUANT 4.95 mg/dL (0.00-0.30); CREATINE KINASE, TOTAL ONLY 73 U/L (26-192); LIPASE 37 U/L (73-393); TOTAL PROTEIN, SERUM 6.5 g/dL (6.4-8.2)
[2019-07-10 12:08] LABS: LACTIC ACID 2.3 mmol/L (0.4-2.0)
[2019-07-10 12:46] LABS: APPEARANCE,URINE CLOUDY (CLEAR); GLUCOSE, URINE (UA) NEGATIVE (NEGATIVE); KETONES,URINE TRACE mg/dL (NEGATIVE); LEUKOCYTE ESTERASE ,URINE LARGE (NEGATIVE); NITRATE,URINE NEGATIVE (NEGATIVE); OCCULT BLOOD,URINE SMALL (NEGATIVE); PH,URINE 5.5 (5.0-8.0); PROTEIN,URINE SEE CONFIRM (NEGATIVE)
[2019-07-10 12:47] LABS: BILIRUBIN,URINE PRELIM. POSITIVE (NEGATIVE)
[2019-07-10 12:57] LABS: SULFOSALICYLIC ACID,URINE 1+ (Negative)
[2019-07-10 12:58] LABS: BACTERIA,URINE Moderate /HPF (None Seen); CALCIUM OXALATE CRYSTALS,UR Few /LPF (None Seen); SQUAMOUS EPITHELIAL CELL,UR Moderate /LPF (None Seen); YEAST,URINE Moderate /HPF (None Seen)
[2019-07-10] MEDS ORDERED: DAPTOMYCIN 500 MG in SODIUM CHLORIDE 0.9% 50 ML IV ONE (13:00)
[2019-07-10] MEDS ORDERED: MAGNESIUM HYDROXIDE SUSPENSION 30 ML UDCUP PO PRN (13:15)
[2019-07-10] MEDS ORDERED: ACETAMINOPHEN 325 MG TABLET PO PRN ×2 (13:15)
[2019-07-10] MEDS ORDERED: ONDANSETRON HCL 4 MG/2 ML VIAL IVP PRN (13:15)
[2019-07-10] MEDS ORDERED: 0.9% SODIUM CHLORIDE 10 ML SYRINGE IVP PRN (13:15)
[2019-07-10] MEDS ORDERED: FUROSEMIDE 20 MG TABLET PO SCH (13:31)
[2019-07-10 14:17] LABS: GLUCOSE,POINT OF CARE 126 MG/DL (70-110)
[2019-07-10 14:32] LABS: ABG A-A DIFF O2 34.5 mmHg (10-20.0); ABG BASE EXCESS -2.4 mmol/L (-2.0-3.0); ABG CARBOXYHEMOGLOBIN 0.5 % (0.0-1.5); ABG HCO3 22.6 mmol/L (22.0-26.0); ABG METHEMOGLOBIN 0.3 % (0.0-1.5); ABG OXYGEN CONTENT 12.2 mL/dL (15.0-23.0); ABG OXYGEN SATURATION 93.4 % (95.0-98.0); ABG OXYHEMOGLOBIN 92.7 % (94.0-100.0); ABG PCO2 38 mmHg (35-45); ABG PH 7.392 (7.35-7.450); ABG TOTAL HEMOGLOBIN 9.3 G/dL (12.0-18.0); SITE, BLOOD GAS LFT RADIAL; SOURCE, BLOOD GAS ARTERIAL; TEMPERATURE, FAHRENHEIT, BG 97.9 FAHREN (96.0-98.6)
[2019-07-10 14:33] LABS: O2 DEVICE,BLOOD GAS ROOM AIR (ROOM AIR)
[2019-07-10] MEDS ORDERED: PHENYLEPHRINE 200 MG/D5%-WATER 250 ML IV PRN (15:15)
[2019-07-10] MEDS ORDERED: *CLINICAL-RX DOSING [ENTER DRUG IN COMMENTS] CLINICAL ONE (16:30)
[2019-07-10 17:35] LABS: FERRITIN 337 ng/mL (8-252)
[2019-07-10 17:50] LABS: LACTATE DEHYDROGENASE 370 U/L (81-234)
[2019-07-10] MEDS: MEROPENEM 1 GM in SODIUM CHLORIDE 0.9% 100 ML IV SCH (20:00)
[2019-07-10] MEDS ORDERED: CefTAZidime PENTAHYDRATE 1 GM in DEXTROSE 5%-WATER 50 ML IV SCH (20:00)
[2019-07-10] MEDS: ATORVASTATIN CALCIUM 20 MG TABLET PO SCH (21:00)
[2019-07-10] MEDS: DOCUSATE SODIUM 100 MG CAPSULE PO SCH (21:00)
[2019-07-10] MEDS: DEXTROSE 5%-0.9% SODIUM CHL 1,000 ML IV SCH (21:05)
[2019-07-10] MEDS: HEPARIN SODIUM,PORCINE 5,000 UNITS/ML VIAL SQ SCH (22:16)
[2019-07-11] VITALS (10 sets, daily range): BP systolic 82–121; BP diastolic 44–61
[2019-07-11] MEDS ORDERED: LEVOTHYROXINE SODIUM 25 MCG TABLET PO SCH (06:30)
[2019-07-11 07:56] LABS: BASOPHILS % (AUTO) 0.7 % (0.0-2.0); EOSINOPHILS % (AUTO) 1.4 % (1.0-6.0); HEMATOCRIT 28.7 % (36-46); HEMOGLOBIN 9.3 g/dL (12.0-16.0); LYMPHOCYTES # (AUTO) 1.4 K/uL (1.0-4.8); LYMPHOCYTES % (AUTO) 13.4 % (22.0-44.0); MEAN CORPUSCULAR HGB CONC 32.4 G/dL (31.0-37.0); MEAN CORPUSCULAR VOLUME 102 fL (80-100); MONOCYTES # (AUTO) 1.1 K/uL (0.1-1.0); MONOCYTES % (AUTO) 10.1 % (2.0-9.0); NEUTROPHILS # (AUTO) 7.7 K/uL (1.8-7.7); NEUTROPHILS % (AUTO) 74.4 % (40.0-70.0); PLATELET COUNT (AUTO) 250 K/uL (150-450); RED BLOOD CELL COUNT(AUTO) 2.82 MIL/uL (4.00-5.20); RED CELL DISTRIBUTION WIDTH 15.3 % (11.5-14.5)
[2019-07-11] MEDS: MEROPENEM 1 GM in SODIUM CHLORIDE 0.9% 100 ML IV SCH ×2 (08:21→19:58)
[2019-07-11] MEDS: DOCUSATE SODIUM 100 MG CAPSULE PO SCH ×2 (08:23→20:00)
[2019-07-11] MEDS: CLOPIDOGREL BISULFATE 75 MG TABLET PO SCH (08:23)
[2019-07-11] MEDS: AMIODARONE HCL 200 MG TABLET PO SCH (08:23)
[2019-07-11] MEDS: MULTIVITAMINS WITH MINERALS, THERAPEUTIC TABLET PO SCH (08:23)
[2019-07-11] MEDS: FAMOTIDINE 20 MG TABLET PO SCH (08:23)
[2019-07-11] MEDS: HEPARIN SODIUM,PORCINE 5,000 UNITS/ML VIAL SQ SCH ×2 (08:25→20:01)
[2019-07-11 08:27] LABS: C-REACTIVE PROTEIN QUANT 8.84 mg/dL (0.00-0.30); CALCIUM, TOTAL 9.1 mg/dL (8.8-10.5); CREATININE 1.06 mg/dL (0.60-1.30)
[2019-07-11 08:30] LABS: POTASSIUM 2.7 mmol/L (3.5-5.1)
[2019-07-11 08:32] LABS: D-DIMER 1.01 mg/L FEU (0.00-0.50)
[2019-07-11 08:46] LABS: MAGNESIUM 1.8 mg/dL (1.80-2.40); PHOSPHORUS 2.6 mg/dL (2.5-4.9); THYROID STIMULATING HORMONE 0.45 uIU/mL (0.36-3.74)
[2019-07-11] MEDS ORDERED: POTASSIUM CHL 10 MEQ/WATER 50 ML IV ONE (09:00)
[2019-07-11] MEDS ORDERED: PHENYLEPHRINE HCL IN 0.9% NACL 400 MCG/10 ML SYRINGE IVP ONE (09:51)
[2019-07-11] MEDS ORDERED: CASPOFUNGIN ACETATE 70 MG in SODIUM CHLORIDE 0.9% 250 ML IV ONE (10:00)
[2019-07-11] MEDS: DEXTROSE 5%-0.9% SODIUM CHL 1,000 ML IV SCH ×2 (10:07→23:39)
[2019-07-11] MEDS: POTASSIUM CHL 10 MEQ/WATER 50 ML IV SCH ×4 (10:39→17:28)
[2019-07-11] MEDS ORDERED: SODIUM CHLORIDE 0.9% 500 ML IV ONE (10:58)
[2019-07-11 11:54] LABS: GLUCOSE,POINT OF CARE 111 MG/DL (70-110)
[2019-07-11] MEDS: DAPTOMYCIN 500 MG in SODIUM CHLORIDE 0.9% 50 ML IV SCH (16:04)
[2019-07-11] MEDS: ATORVASTATIN CALCIUM 20 MG TABLET PO SCH (20:00)
[2019-07-12] VITALS: BP 91/46
[2019-07-12 04:00] VITALS: BP 101/49
[2019-07-12] MEDS: LEVOTHYROXINE SODIUM 75 MCG TABLET PO SCH (05:51)
[2019-07-12 06:36] LABS: CALCIUM, TOTAL 8.5 mg/dL (8.8-10.5); CREATININE 1.06 mg/dL (0.60-1.30); MAGNESIUM 1.4 mg/dL (1.80-2.40); PHOSPHORUS 1.9 mg/dL (2.5-4.9)
[2019-07-12 06:41] LABS: POTASSIUM 2.8 mmol/L (3.5-5.1)
[2019-07-12] MEDS ORDERED: MAGNESIUM SULFATE 2 GM/WATER 50 ML IV ONE (06:45)
[2019-07-12] MEDS ORDERED: POTASSIUM PHOS,M-BASIC-D-BASIC 20 MEQ in DEXTROSE 5%-WATER 100 ML IV ONE ×2 (06:45→14:45)
[2019-07-12] MEDS: POTASSIUM CHL 10 MEQ/WATER 50 ML IV SCH ×2 (07:58→09:02)
[2019-07-12 08:00] VITALS: BP 101/54
[2019-07-12] MEDS: MEROPENEM 1 GM in SODIUM CHLORIDE 0.9% 100 ML IV SCH ×2 (08:30→21:16)
[2019-07-12] MEDS: CLOPIDOGREL BISULFATE 75 MG TABLET PO SCH (09:10)
[2019-07-12] MEDS: MULTIVITAMINS WITH MINERALS, THERAPEUTIC TABLET PO SCH (09:10)
[2019-07-12] MEDS: FAMOTIDINE 20 MG TABLET PO SCH (09:10)
[2019-07-12] MEDS: HEPARIN SODIUM,PORCINE 5,000 UNITS/ML VIAL SQ SCH ×2 (09:10→21:05)
[2019-07-12] MEDS: DOCUSATE SODIUM 100 MG CAPSULE PO SCH ×2 (09:11→21:00)
[2019-07-12] MEDS: AMIODARONE HCL 200 MG TABLET PO SCH (09:11)
[2019-07-12] MEDS: CASPOFUNGIN ACETATE 50 MG in SODIUM CHLORIDE 0.9% 250 ML IV SCH (10:28)
[2019-07-12 13:45] LABS: ANION GAP 8 mmol/L (8-16); CALCIUM, TOTAL 8.8 mg/dL (8.8-10.5); CARBON DIOXIDE 24 mmol/L (22-29); CHLORIDE 108 mmol/L (98-107); CREATININE 0.79 mg/dL (0.60-1.30); GLOMERULAR FILTR. RATE CALC > 60 mL/min (>60); GLUCOSE,RANDOM 104 mg/dL (70-110); POTASSIUM 3.3 mmol/L (3.5-5.1); SODIUM SERUM 140 mmol/L (136-145); UREA NITROGEN, BLOOD 20 mg/dL (7-18)
[2019-07-12] MEDS: DAPTOMYCIN 500 MG in SODIUM CHLORIDE 0.9% 50 ML IV SCH (14:49)
[2019-07-12] MEDS: DEXTROSE 5%-0.9% SODIUM CHL 1,000 ML IV SCH (14:51)
[2019-07-12 17:30] VITALS: BP 118/60
[2019-07-12 20:09] VITALS: BP 142/63
[2019-07-12] MEDS: ATORVASTATIN CALCIUM 20 MG TABLET PO SCH (21:00)
[2019-07-13 00:23] VITALS: BP 130/73
[2019-07-13 04:14] VITALS: BP 139/76
[2019-07-13] MEDS: DEXTROSE 5%-0.9% SODIUM CHL 1,000 ML IV SCH ×2 (05:00→21:19)
[2019-07-13 07:06] LABS: ANION GAP 9 mmol/L (8-16); CALCIUM, TOTAL 8.8 mg/dL (8.8-10.5); CARBON DIOXIDE 22 mmol/L (22-29); CHLORIDE 109 mmol/L (98-107); CREATININE 0.77 mg/dL (0.60-1.30); GLUCOSE,RANDOM 105 mg/dL (70-110); PHOSPHORUS 2.1 mg/dL (2.5-4.9); POTASSIUM 3.3 mmol/L (3.5-5.1); SODIUM SERUM 140 mmol/L (136-145); UREA NITROGEN, BLOOD 18 mg/dL (7-18)
[2019-07-13 07:16] LABS: GLOMERULAR FILTR. RATE CALC > 60 mL/min (>60)
[2019-07-13 07:30] VITALS: BP 129/71
[2019-07-13] MEDS: MEROPENEM 1 GM in SODIUM CHLORIDE 0.9% 100 ML IV SCH ×2 (08:36→21:19)
[2019-07-13] MEDS: AMIODARONE HCL 200 MG TABLET PO SCH (08:38)
[2019-07-13] MEDS: CLOPIDOGREL BISULFATE 75 MG TABLET PO SCH (08:38)
[2019-07-13] MEDS: LEVOTHYROXINE SODIUM 75 MCG TABLET PO SCH (08:38)
[2019-07-13] MEDS: FAMOTIDINE 20 MG TABLET PO SCH (08:42)
[2019-07-13] MEDS ORDERED: POTASSIUM PHOS,M-BASIC-D-BASIC 20 MEQ in DEXTROSE 5%-WATER 100 ML IV ONE (08:45)
[2019-07-13] MEDS: DOCUSATE SODIUM 100 MG CAPSULE PO SCH ×2 (08:50→21:00)
[2019-07-13] MEDS: MULTIVITAMINS WITH MINERALS, THERAPEUTIC TABLET PO SCH (08:50)
[2019-07-13] MEDS: HEPARIN SODIUM,PORCINE 5,000 UNITS/ML VIAL SQ SCH ×2 (08:51→21:19)
[2019-07-13 09:28] LABS: HEMATOCRIT 25.5 % (36-46); HEMOGLOBIN 8.7 g/dL (12.0-16.0); MEAN CORPUSCULAR HEMOGLOBIN 34.1 pg (26.0-34.0); MEAN CORPUSCULAR HGB CONC 33.9 G/dL (31.0-37.0); MEAN CORPUSCULAR VOLUME 101 fL (80-100); PLATELET COUNT (AUTO) 191 K/uL (150-450); RED BLOOD CELL COUNT(AUTO) 2.54 MIL/uL (4.00-5.20); RED CELL DISTRIBUTION WIDTH 15.6 % (11.5-14.5)
[2019-07-13 09:31] LABS: ALANINE AMINOTRANSFERASE 12 U/L (12-78); ALBUMIN 1.7 g/dL (3.4-5.0); ALKALINE PHOSPHATASE 76 U/L (46-116); ASPARTATE AMINOTRANSFERASE 31 U/L (15-37); BILIRUBIN,TOTAL 0.4 mg/dL (0.1-1.0); TOTAL PROTEIN, SERUM 5.6 g/dL (6.4-8.2)
[2019-07-13 09:59] LABS: BAND NEUTROPHILS % (MANUAL) 0 % (0-5)
[2019-07-13 10:01] LABS: EOSINOPHILS % (MANUAL) 1 % (1-6); LYMPHOCYTES % (MANUAL) 20 % (22-44); MONOCYTES % (MANUAL) 9 % (2-9); SEGMENTED NEUTROPHILS % 70 % (40-70)
[2019-07-13 11:22] VITALS: BP_SYST 122; BP_SYST 129; BP_DIAS 76; BP_DIAS 79
[2019-07-13] MEDS: CASPOFUNGIN ACETATE 50 MG in SODIUM CHLORIDE 0.9% 250 ML IV SCH (12:23)
[2019-07-13] MEDS ORDERED: SODIUM CHLORIDE 0.9% 250 ML IV ONE (14:07)
[2019-07-13] MEDS: DAPTOMYCIN 500 MG in SODIUM CHLORIDE 0.9% 50 ML IV SCH (14:15)
[2019-07-13 15:37] VITALS: BP 122/64
[2019-07-13] MEDS: ATORVASTATIN CALCIUM 20 MG TABLET PO SCH (21:00)
[2019-07-13 23:40] VITALS: BP 153/75
[2019-07-14 04:03] VITALS: BP 149/84
[2019-07-14] MEDS: LEVOTHYROXINE SODIUM 75 MCG TABLET PO SCH (06:38)
[2019-07-14 07:18] LABS: ANION GAP 12 mmol/L (8-16); CALCIUM, TOTAL 8.3 mg/dL (8.8-10.5); CARBON DIOXIDE 20 mmol/L (22-29); CHLORIDE 111 mmol/L (98-107); CREATININE 0.54 mg/dL (0.60-1.30); GLOMERULAR FILTR. RATE CALC > 60 mL/min (>60); GLUCOSE,RANDOM 104 mg/dL (70-110); PHOSPHORUS 1.8 mg/dL (2.5-4.9); SODIUM SERUM 143 mmol/L (136-145); UREA NITROGEN, BLOOD 11 mg/dL (7-18)
[2019-07-14 07:23] VITALS: BP 147/78
[2019-07-14] MEDS: MEROPENEM 1 GM in SODIUM CHLORIDE 0.9% 100 ML IV SCH ×3 (08:13→23:29)
[2019-07-14] MEDS: MULTIVITAMINS WITH MINERALS, THERAPEUTIC TABLET PO SCH ×2 (08:20→08:43)
[2019-07-14] MEDS: DOCUSATE SODIUM 100 MG CAPSULE PO SCH ×2 (08:20→20:47)
[2019-07-14] MEDS: AMIODARONE HCL 200 MG TABLET PO SCH (08:20)
[2019-07-14] MEDS: FAMOTIDINE 20 MG TABLET PO SCH (08:20)
[2019-07-14] MEDS: CLOPIDOGREL BISULFATE 75 MG TABLET PO SCH (08:21)
[2019-07-14] MEDS: HEPARIN SODIUM,PORCINE 5,000 UNITS/ML VIAL SQ SCH ×2 (08:26→20:47)
[2019-07-14] MEDS ORDERED: MAGNESIUM SULFATE 4 GM/WATER 100 ML IV ONE (09:45)
[2019-07-14] MEDS ORDERED: SODIUM PHOS,M-BASIC-D-BASIC 30 MMOL in DEXTROSE 5%-WATER 250 ML IV ONE (09:45)
[2019-07-14] MEDS: POTASSIUM CHL 10 MEQ/WATER 50 ML IV SCH ×4 (10:15→13:02)
[2019-07-14] MEDS ORDERED: SODIUM CHLORIDE 0.9% 250 ML IV ONE (10:22)
[2019-07-14 11:14] VITALS: BP 150/80
[2019-07-14] MEDS: DAPTOMYCIN 500 MG in SODIUM CHLORIDE 0.9% 50 ML IV SCH (14:13)
[2019-07-14] MEDS: DEXTROSE 5%-0.9% SODIUM CHL 1,000 ML IV SCH (15:47)
[2019-07-14 16:30] VITALS: BP 158/87
[2019-07-14 19:54] VITALS: BP 151/75
[2019-07-14] MEDS: ATORVASTATIN CALCIUM 20 MG TABLET PO SCH (20:47)
[2019-07-14 23:42] VITALS: BP 115/97
[2019-07-15 04:40] VITALS: BP 131/82
[2019-07-15] MEDS: DEXTROSE 5%-0.9% SODIUM CHL 1,000 ML IV SCH (06:11)
[2019-07-15] MEDS: LEVOTHYROXINE SODIUM 75 MCG TABLET PO SCH (06:11)
[2019-07-15 06:41] LABS: BASOPHILS % (AUTO) 1.4 % (0.0-2.0); EOSINOPHILS % (AUTO) 7.6 % (1.0-6.0); HEMATOCRIT 25.3 % (36-46); HEMOGLOBIN 8.7 g/dL (12.0-16.0); LYMPHOCYTES # (AUTO) 1.7 K/uL (1.0-4.8); LYMPHOCYTES % (AUTO) 45.7 % (22.0-44.0); MEAN CORPUSCULAR HEMOGLOBIN 34.5 pg (26.0-34.0); MEAN CORPUSCULAR HGB CONC 34.4 G/dL (31.0-37.0); MEAN CORPUSCULAR VOLUME 101 fL (80-100); MONOCYTES # (AUTO) 0.3 K/uL (0.1-1.0); MONOCYTES % (AUTO) 8.2 % (2.0-9.0); NEUTROPHILS # (AUTO) 1.4 K/uL (1.8-7.7); NEUTROPHILS % (AUTO) 37.1 % (40.0-70.0); PLATELET COUNT (AUTO) 195 K/uL (150-450); RED BLOOD CELL COUNT(AUTO) 2.51 MIL/uL (4.00-5.20); RED CELL DISTRIBUTION WIDTH 15.5 % (11.5-14.5)
[2019-07-15 06:56] LABS: ANION GAP 10 mmol/L (8-16); CALCIUM, TOTAL 8.1 mg/dL (8.8-10.5); CARBON DIOXIDE 22 mmol/L (22-29); CHLORIDE 112 mmol/L (98-107); CREATININE 0.57 mg/dL (0.60-1.30); GLOMERULAR FILTR. RATE CALC > 60 mL/min (>60); GLUCOSE,RANDOM 97 mg/dL (70-110); PHOSPHORUS 2.1 mg/dL (2.5-4.9); POTASSIUM 3.4 mmol/L (3.5-5.1); SODIUM SERUM 144 mmol/L (136-145); UREA NITROGEN, BLOOD 7 mg/dL (7-18)
[2019-07-15 07:12] VITALS: BP 145/77
[2019-07-15] MEDS: MEROPENEM 1 GM in SODIUM CHLORIDE 0.9% 100 ML IV SCH ×2 (07:21→16:47)
[2019-07-15] MEDS: HEPARIN SODIUM,PORCINE 5,000 UNITS/ML VIAL SQ SCH (08:05)
[2019-07-15] MEDS: CLOPIDOGREL BISULFATE 75 MG TABLET PO SCH (08:08)
[2019-07-15] MEDS: FAMOTIDINE 20 MG TABLET PO SCH (08:09)
[2019-07-15] MEDS: DOCUSATE SODIUM 100 MG CAPSULE PO SCH (08:09)
[2019-07-15] MEDS: AMIODARONE HCL 200 MG TABLET PO SCH (08:09)
[2019-07-15] MEDS: MULTIVITAMINS WITH MINERALS, THERAPEUTIC TABLET PO SCH (08:09)
[2019-07-15] MEDS ORDERED: SODIUM PHOS,M-BASIC-D-BASIC 30 MMOL in DEXTROSE 5%-WATER 250 ML IV ONE (09:45)
[2019-07-15] MEDS ORDERED: MAGNESIUM SULFATE 3 GM in DEXTROSE 5%-WATER 100 ML IV ONE (09:45)
[2019-07-15] MEDS ORDERED: POTASSIUM CHLORIDE 10% 40 MEQ/30 ML LIQUID UDCUP PO ONE (09:45)
[2019-07-15 10:59] VITALS: BP 141/69
[2019-07-15] MEDS: POTASSIUM CHL 10 MEQ/WATER 50 ML IV SCH ×4 (12:04→15:00)
[2019-07-15] MEDS: DAPTOMYCIN 500 MG in SODIUM CHLORIDE 0.9% 50 ML IV SCH (14:49)
[2019-07-15 16:35] VITALS: BP 148/78
[2019-07-15] MEDS ORDERED: ATOR20TA86 PO (16:45)
[2019-07-15] MEDS ORDERED: DAPT500V8 IV (16:46)
[2019-07-15] MEDS ORDERED: FAMO20 PO (16:49)
[2019-07-15] MEDS ORDERED: [UNRECOGNIZED DRUG - CODE] IV (16:51)
[2019-07-15] MEDS ORDERED: DOCU-275 PO (16:54)
[2019-07-15] MEDS ORDERED: MERO1PIG IV (17:00)
[2019-07-15] MEDS ORDERED: MULT-723 PO (17:02)
[2019-07-15] MEDS ORDERED: ACET-66 PO (17:04)
[2019-07-15] MEDS ORDERED: LEVO25TA9 PO (17:11)
== END 2019-07-15 19:35 | DRG 871 ==
LOC: EMS 09:43 → ICU 07-11 09:32 → 5S 07-12 17:00
PROVIDERS: ADMIT Internal Medicine; ATTEND Internal Medicine
DX: A41.9 Sepsis, unspecified organism (principal); L89.154 Pressure ulcer of sacral region, stage 4; E43 Unspecified severe protein-calorie malnutrition; R65.21 Severe sepsis with septic shock; J18.9 Pneumonia, unspecified organism; N39.0 Urinary tract infection, site not specified; E87.1 Hypo-osmolality and hyponatremia; N17.9 Acute kidney failure, unspecified; M86.8X8 Other osteomyelitis, other site; I35.0 Nonrheumatic aortic (valve) stenosis; D63.8 Anemia in other chronic diseases classified elsewhere; G35 Multiple sclerosis; G89.4 Chronic pain syndrome; E83.39 Other disorders of phosphorus metabolism; E83.42 Hypomagnesemia; E03.9 Hypothyroidism, unspecified; F03.90 Unspecified dementia, unspecified severity, without behavioral disturbance, psychotic disturbance, mood disturbance, and anxiety; I50.9 Heart failure, unspecified; I11.0 Hypertensive heart disease with heart failure; R62.7 Adult failure to thrive; K21.9 Gastro-esophageal reflux disease without esophagitis; I48.91 Unspecified atrial fibrillation; E87.6 Hypokalemia; Z20.828 Contact with and (suspected) exposure to other viral communicable diseases; B96.5 Pseudomonas (aeruginosa) (mallei) (pseudomallei) as the cause of diseases classified elsewhere; N31.9 Neuromuscular dysfunction of bladder, unspecified; Z90.49 Acquired absence of other specified parts of digestive tract; Z88.0 Allergy status to penicillin; Z79.899 Other long term (current) drug therapy; Z68.26 Body mass index [BMI] 26.0-26.9, adult
CPT/HCPCS: 51701; 70450; 71250; 72192; 74150; 82728; 82805; 83605; 83615; 83735; 84100; 84132; 84443; 85379; 85384; 86140; 87040; 87081; 87086; 87635; 87804; 92610; 93005; 93306; 93971; 99291; G0378; J0637; J0713; J0878; J1644; J2185; J2370; J3475; J3480; J3490; J7030; J7040; J7042; J7050; J7060

== ENCOUNTER → 2019-08-20 | Outpatient (CLI) | payer MEDICARE, OTHER ==
[~2019-08-20] MED LIST changes: +ACET-66 PO; +ATOR20TA86 PO; +COLLAGENASE 250 UNITS/GM 30 GM OINTMENT TP ONE; +DAPT500V8 IV; +DOCU-275 PO; +FAMO20 PO; +FOLI-130 PO; -FOLI1 PO; +GABA-1201 PO; -GABA-533 PO; +HEPA500018 SQ; +LEVO25TA9 PO; +LIDOCAINE 4% 50 ML SOLUTION ONE; +MERO1PIG IV; +MULT-723 PO; +[UNRECOGNIZED DRUG - CODE] IV
== END | disposition home or self-care (01) ==
LOC: HBOWC 08:39
PROVIDERS: ATTEND Surgery Plastic and Reconstructive Surgery
DX: L89.154 Pressure ulcer of sacral region, stage 4 (principal); L89.323 Pressure ulcer of left buttock, stage 3; D63.8 Anemia in other chronic diseases classified elsewhere; K21.9 Gastro-esophageal reflux disease without esophagitis; I11.0 Hypertensive heart disease with heart failure; I50.9 Heart failure, unspecified; E03.9 Hypothyroidism, unspecified; G35 Multiple sclerosis; M86.8X8 Other osteomyelitis, other site; I48.91 Unspecified atrial fibrillation; F03.90 Unspecified dementia, unspecified severity, without behavioral disturbance, psychotic disturbance, mood disturbance, and anxiety; E43 Unspecified severe protein-calorie malnutrition; M46.28 Osteomyelitis of vertebra, sacral and sacrococcygeal region; G62.9 Polyneuropathy, unspecified; R26.9 Unspecified abnormalities of gait and mobility; I87.2 Venous insufficiency (chronic) (peripheral); Z79.899 Other long term (current) drug therapy; Z88.0 Allergy status to penicillin; Z88.6 Allergy status to analgesic agent; Z79.02 Long term (current) use of antithrombotics/antiplatelets; Z90.710 Acquired absence of both cervix and uterus; Z87.891 Personal history of nicotine dependence; Z68.41 Body mass index [BMI] 40.0-44.9, adult
CPT/HCPCS: 11043; 11044; 11047

== ENCOUNTER → 2019-08-27 | Outpatient (CLI) | payer MEDICARE, OTHER ==
[~2019-08-27] MED LIST changes: +BALANCED SALT 15 ML OPHTHALMIC IRRIG.SOLN ONE; -COLLAGENASE 250 UNITS/GM 30 GM OINTMENT TP ONE; +EPINEPHrine 1:1,000 [1 MG/ML] AMP ONE; +HYALURONATE SOD/CHONDROITIN SOD 0.5 ML VIAL IO ONE; +HYALURONATE SODIUM 12 MG/ML 0.8 ML SYRINGE IO ONE; +LIDOCAINE 1% 20 ML VIAL *UNAVILABLE ONE; +POVIDONE-IODINE 10% 15 ML SOLUTION UD ONE; +PrednisoLONE ACETATE 1% 5 ML OPHTHALMIC SUSPENSION ONE
== END | disposition home or self-care (01) ==
LOC: HBOWC 08:48
PROVIDERS: ATTEND Surgery Plastic and Reconstructive Surgery
DX: L89.154 Pressure ulcer of sacral region, stage 4 (principal); L89.323 Pressure ulcer of left buttock, stage 3; D63.8 Anemia in other chronic diseases classified elsewhere; K21.9 Gastro-esophageal reflux disease without esophagitis; I11.0 Hypertensive heart disease with heart failure; I50.9 Heart failure, unspecified; E03.9 Hypothyroidism, unspecified; G35 Multiple sclerosis; M86.8X8 Other osteomyelitis, other site; M46.28 Osteomyelitis of vertebra, sacral and sacrococcygeal region; I48.91 Unspecified atrial fibrillation; F03.90 Unspecified dementia, unspecified severity, without behavioral disturbance, psychotic disturbance, mood disturbance, and anxiety; E43 Unspecified severe protein-calorie malnutrition; G62.9 Polyneuropathy, unspecified; R26.9 Unspecified abnormalities of gait and mobility; I87.2 Venous insufficiency (chronic) (peripheral); Z79.899 Other long term (current) drug therapy; Z88.0 Allergy status to penicillin; Z88.6 Allergy status to analgesic agent; Z79.02 Long term (current) use of antithrombotics/antiplatelets; Z90.710 Acquired absence of both cervix and uterus; Z87.891 Personal history of nicotine dependence; Z68.41 Body mass index [BMI] 40.0-44.9, adult
CPT/HCPCS: 11043; 11044; 11047; J0171; J3490

== ENCOUNTER → 2019-09-03 | Outpatient (CLI) | payer MEDICARE, OTHER ==
[~2019-09-03] MED LIST changes: -BALANCED SALT 15 ML OPHTHALMIC IRRIG.SOLN ONE; +COLLAGENASE 250 UNITS/GM 30 GM OINTMENT TP ONE; -EPINEPHrine 1:1,000 [1 MG/ML] AMP ONE; -HYALURONATE SOD/CHONDROITIN SOD 0.5 ML VIAL IO ONE; -HYALURONATE SODIUM 12 MG/ML 0.8 ML SYRINGE IO ONE; -LIDOCAINE 1% 20 ML VIAL *UNAVILABLE ONE; -POVIDONE-IODINE 10% 15 ML SOLUTION UD ONE; -PrednisoLONE ACETATE 1% 5 ML OPHTHALMIC SUSPENSION ONE
== END | disposition home or self-care (01) ==
LOC: HBOWC 08:34
PROVIDERS: ATTEND Surgery Plastic and Reconstructive Surgery
DX: L89.154 Pressure ulcer of sacral region, stage 4 (principal); L89.323 Pressure ulcer of left buttock, stage 3; D63.8 Anemia in other chronic diseases classified elsewhere; K21.9 Gastro-esophageal reflux disease without esophagitis; I11.0 Hypertensive heart disease with heart failure; I50.9 Heart failure, unspecified; E03.9 Hypothyroidism, unspecified; G35 Multiple sclerosis; M86.8X8 Other osteomyelitis, other site; M46.28 Osteomyelitis of vertebra, sacral and sacrococcygeal region; I48.91 Unspecified atrial fibrillation; F03.90 Unspecified dementia, unspecified severity, without behavioral disturbance, psychotic disturbance, mood disturbance, and anxiety; E43 Unspecified severe protein-calorie malnutrition; G62.9 Polyneuropathy, unspecified; R26.9 Unspecified abnormalities of gait and mobility; I87.2 Venous insufficiency (chronic) (peripheral); G89.4 Chronic pain syndrome; Z79.899 Other long term (current) drug therapy; Z88.0 Allergy status to penicillin; Z88.6 Allergy status to analgesic agent; Z79.02 Long term (current) use of antithrombotics/antiplatelets; Z90.710 Acquired absence of both cervix and uterus; Z87.891 Personal history of nicotine dependence; Z68.41 Body mass index [BMI] 40.0-44.9, adult; Z90.49 Acquired absence of other specified parts of digestive tract
CPT/HCPCS: 11043; 11044; 11047

== ENCOUNTER → 2019-09-10 | Outpatient (CLI) | payer MEDICARE, OTHER ==
[~2019-09-10] MED LIST changes: -LIDOCAINE 4% 50 ML SOLUTION ONE; +LIDOCAINE 4% 50 ML SOLUTION TP ONE
== END | disposition home or self-care (01) ==
LOC: HBOWC 08:50
PROVIDERS: ATTEND Surgery Plastic and Reconstructive Surgery
DX: L89.154 Pressure ulcer of sacral region, stage 4 (principal); L89.323 Pressure ulcer of left buttock, stage 3; D63.8 Anemia in other chronic diseases classified elsewhere; K21.9 Gastro-esophageal reflux disease without esophagitis; I11.0 Hypertensive heart disease with heart failure; I50.9 Heart failure, unspecified; E03.9 Hypothyroidism, unspecified; G35 Multiple sclerosis; M86.8X8 Other osteomyelitis, other site; I48.91 Unspecified atrial fibrillation; F03.90 Unspecified dementia, unspecified severity, without behavioral disturbance, psychotic disturbance, mood disturbance, and anxiety; E43 Unspecified severe protein-calorie malnutrition; M46.28 Osteomyelitis of vertebra, sacral and sacrococcygeal region; G62.9 Polyneuropathy, unspecified; R26.9 Unspecified abnormalities of gait and mobility; I87.2 Venous insufficiency (chronic) (peripheral); I35.0 Nonrheumatic aortic (valve) stenosis; Z79.899 Other long term (current) drug therapy; Z79.02 Long term (current) use of antithrombotics/antiplatelets; Z88.6 Allergy status to analgesic agent; Z88.0 Allergy status to penicillin; Z90.710 Acquired absence of both cervix and uterus; Z90.49 Acquired absence of other specified parts of digestive tract; Z87.891 Personal history of nicotine dependence; Z68.41 Body mass index [BMI] 40.0-44.9, adult
CPT/HCPCS: 11043; 11044; 11047

== ENCOUNTER → 2019-09-17 | Outpatient (CLI) | payer MEDICARE, OTHER | END | disposition home or self-care (01) | LOC: HBOWC 08:29 | PROVIDERS: ATTEND Surgery Plastic and Reconstructive Surgery | DX: L89.154 Pressure ulcer of sacral region, stage 4 (principal); L89.323 Pressure ulcer of left buttock, stage 3; D63.8 Anemia in other chronic diseases classified elsewhere; K21.9 Gastro-esophageal reflux disease without esophagitis; I11.0 Hypertensive heart disease with heart failure; I50.9 Heart failure, unspecified; E03.9 Hypothyroidism, unspecified; G35 Multiple sclerosis; M86.8X8 Other osteomyelitis, other site; I48.91 Unspecified atrial fibrillation; F03.90 Unspecified dementia, unspecified severity, without behavioral disturbance, psychotic disturbance, mood disturbance, and anxiety; E43 Unspecified severe protein-calorie malnutrition; M46.28 Osteomyelitis of vertebra, sacral and sacrococcygeal region; G62.9 Polyneuropathy, unspecified; R26.9 Unspecified abnormalities of gait and mobility; I87.2 Venous insufficiency (chronic) (peripheral); I35.0 Nonrheumatic aortic (valve) stenosis; G89.4 Chronic pain syndrome; Z79.899 Other long term (current) drug therapy; Z79.02 Long term (current) use of antithrombotics/antiplatelets; Z88.6 Allergy status to analgesic agent; Z88.0 Allergy status to penicillin; Z90.710 Acquired absence of both cervix and uterus; Z90.49 Acquired absence of other specified parts of digestive tract; Z87.891 Personal history of nicotine dependence; Z68.41 Body mass index [BMI] 40.0-44.9, adult | CPT/HCPCS: 11043; 11044; 11047; Z7610 ==

== ENCOUNTER → 2019-09-24 | Outpatient (CLI) | payer MEDICARE, OTHER ==
[~2019-09-24] MED LIST changes: -COLLAGENASE 250 UNITS/GM 30 GM OINTMENT TP ONE; -LIDOCAINE 4% 50 ML SOLUTION TP ONE
== END | disposition home or self-care (01) ==
LOC: HBOWC 08:31
PROVIDERS: ATTEND Surgery Plastic and Reconstructive Surgery
DX: L89.154 Pressure ulcer of sacral region, stage 4 (principal); L89.324 Pressure ulcer of left buttock, stage 4; D63.8 Anemia in other chronic diseases classified elsewhere; K21.9 Gastro-esophageal reflux disease without esophagitis; I11.0 Hypertensive heart disease with heart failure; I50.9 Heart failure, unspecified; E03.9 Hypothyroidism, unspecified; G35 Multiple sclerosis; M86.8X8 Other osteomyelitis, other site; I48.91 Unspecified atrial fibrillation; F03.90 Unspecified dementia, unspecified severity, without behavioral disturbance, psychotic disturbance, mood disturbance, and anxiety; E43 Unspecified severe protein-calorie malnutrition; M46.28 Osteomyelitis of vertebra, sacral and sacrococcygeal region; G62.9 Polyneuropathy, unspecified; R26.9 Unspecified abnormalities of gait and mobility; I87.2 Venous insufficiency (chronic) (peripheral); I35.0 Nonrheumatic aortic (valve) stenosis; G89.4 Chronic pain syndrome; Z79.899 Other long term (current) drug therapy; Z79.02 Long term (current) use of antithrombotics/antiplatelets; Z88.6 Allergy status to analgesic agent; Z88.0 Allergy status to penicillin; Z90.710 Acquired absence of both cervix and uterus; Z90.49 Acquired absence of other specified parts of digestive tract; Z87.891 Personal history of nicotine dependence; Z68.41 Body mass index [BMI] 40.0-44.9, adult
CPT/HCPCS: 11043; 11044; 11047

== ENCOUNTER → 2019-10-01 | Outpatient (CLI) | payer MEDICARE, OTHER | END | disposition home or self-care (01) | LOC: HBOWC 09:17 | PROVIDERS: ATTEND Surgery Plastic and Reconstructive Surgery | DX: L89.154 Pressure ulcer of sacral region, stage 4 (principal); L89.324 Pressure ulcer of left buttock, stage 4; D63.8 Anemia in other chronic diseases classified elsewhere; K21.9 Gastro-esophageal reflux disease without esophagitis; I11.0 Hypertensive heart disease with heart failure; I50.9 Heart failure, unspecified; E03.9 Hypothyroidism, unspecified; G35 Multiple sclerosis; M86.8X8 Other osteomyelitis, other site; I48.91 Unspecified atrial fibrillation; F03.90 Unspecified dementia, unspecified severity, without behavioral disturbance, psychotic disturbance, mood disturbance, and anxiety; E43 Unspecified severe protein-calorie malnutrition; M46.28 Osteomyelitis of vertebra, sacral and sacrococcygeal region; G62.9 Polyneuropathy, unspecified; R26.9 Unspecified abnormalities of gait and mobility; I87.2 Venous insufficiency (chronic) (peripheral); I35.0 Nonrheumatic aortic (valve) stenosis; G89.4 Chronic pain syndrome; Z79.899 Other long term (current) drug therapy; Z79.02 Long term (current) use of antithrombotics/antiplatelets; Z88.6 Allergy status to analgesic agent; Z88.0 Allergy status to penicillin; Z90.710 Acquired absence of both cervix and uterus; Z90.49 Acquired absence of other specified parts of digestive tract; Z87.891 Personal history of nicotine dependence; Z68.41 Body mass index [BMI] 40.0-44.9, adult | CPT/HCPCS: 11043; 11044; 11047; 97605 ==

== ENCOUNTER → 2019-10-08 | Outpatient (CLI) | payer MEDICARE, OTHER | END | disposition home or self-care (01) | LOC: HBOWC 08:59 | PROVIDERS: ATTEND Surgery Plastic and Reconstructive Surgery | DX: L89.154 Pressure ulcer of sacral region, stage 4 (principal); L89.324 Pressure ulcer of left buttock, stage 4; D63.8 Anemia in other chronic diseases classified elsewhere; K21.9 Gastro-esophageal reflux disease without esophagitis; I11.0 Hypertensive heart disease with heart failure; I50.9 Heart failure, unspecified; E03.9 Hypothyroidism, unspecified; G35 Multiple sclerosis; I48.91 Unspecified atrial fibrillation; F03.90 Unspecified dementia, unspecified severity, without behavioral disturbance, psychotic disturbance, mood disturbance, and anxiety; E43 Unspecified severe protein-calorie malnutrition; M86.8X8 Other osteomyelitis, other site; M46.28 Osteomyelitis of vertebra, sacral and sacrococcygeal region; G62.9 Polyneuropathy, unspecified; R26.9 Unspecified abnormalities of gait and mobility; I87.2 Venous insufficiency (chronic) (peripheral); I35.0 Nonrheumatic aortic (valve) stenosis; G89.4 Chronic pain syndrome; Z79.899 Other long term (current) drug therapy; Z79.02 Long term (current) use of antithrombotics/antiplatelets; Z88.6 Allergy status to analgesic agent; Z88.0 Allergy status to penicillin; Z90.710 Acquired absence of both cervix and uterus; Z90.49 Acquired absence of other specified parts of digestive tract; Z87.891 Personal history of nicotine dependence; Z68.41 Body mass index [BMI] 40.0-44.9, adult | CPT/HCPCS: 11043; 11044; 11047 ==

== ENCOUNTER → 2019-10-15 | Outpatient (CLI) | payer MEDICARE, OTHER ==
[~2019-10-15] MED LIST changes: +CLOP-31 PO; -CLOP75TA3 PO; -DOCU-342 PO; +DOCU-350 PO
== END | disposition home or self-care (01) ==
LOC: HBOWC 08:46
PROVIDERS: ATTEND Surgery Plastic and Reconstructive Surgery
DX: L89.154 Pressure ulcer of sacral region, stage 4 (principal); L89.324 Pressure ulcer of left buttock, stage 4; S71.111A Laceration without foreign body, right thigh, initial encounter; K21.9 Gastro-esophageal reflux disease without esophagitis; I11.0 Hypertensive heart disease with heart failure; D63.8 Anemia in other chronic diseases classified elsewhere; I50.9 Heart failure, unspecified; E03.9 Hypothyroidism, unspecified; G35 Multiple sclerosis; I48.91 Unspecified atrial fibrillation; F03.90 Unspecified dementia, unspecified severity, without behavioral disturbance, psychotic disturbance, mood disturbance, and anxiety; M86.8X8 Other osteomyelitis, other site; M46.28 Osteomyelitis of vertebra, sacral and sacrococcygeal region; G62.9 Polyneuropathy, unspecified; R26.9 Unspecified abnormalities of gait and mobility; I87.2 Venous insufficiency (chronic) (peripheral); I35.0 Nonrheumatic aortic (valve) stenosis; G89.4 Chronic pain syndrome; E43 Unspecified severe protein-calorie malnutrition; Z68.41 Body mass index [BMI] 40.0-44.9, adult; Z79.899 Other long term (current) drug therapy; Z79.02 Long term (current) use of antithrombotics/antiplatelets; Z88.6 Allergy status to analgesic agent; Z88.0 Allergy status to penicillin; Z90.710 Acquired absence of both cervix and uterus; Z90.49 Acquired absence of other specified parts of digestive tract; Z87.891 Personal history of nicotine dependence; X58.XXXA Exposure to other specified factors, initial encounter; Y93.89 Activity, other specified; Y92.89 Other specified places as the place of occurrence of the external cause; Y99.8 Other external cause status
CPT/HCPCS: 11043; 11044; 11047

== ENCOUNTER → 2019-10-22 | Outpatient (CLI) | payer MEDICARE, OTHER | END | disposition home or self-care (01) | LOC: HBOWC 08:22 | PROVIDERS: ATTEND Surgery Plastic and Reconstructive Surgery | DX: L89.154 Pressure ulcer of sacral region, stage 4 (principal); L89.324 Pressure ulcer of left buttock, stage 4; L89.313 Pressure ulcer of right buttock, stage 3; K21.9 Gastro-esophageal reflux disease without esophagitis; I11.0 Hypertensive heart disease with heart failure; I50.9 Heart failure, unspecified; D63.8 Anemia in other chronic diseases classified elsewhere; E03.9 Hypothyroidism, unspecified; G35 Multiple sclerosis; I48.91 Unspecified atrial fibrillation; F03.90 Unspecified dementia, unspecified severity, without behavioral disturbance, psychotic disturbance, mood disturbance, and anxiety; M86.8X8 Other osteomyelitis, other site; M46.28 Osteomyelitis of vertebra, sacral and sacrococcygeal region; G62.9 Polyneuropathy, unspecified; R26.9 Unspecified abnormalities of gait and mobility; I87.2 Venous insufficiency (chronic) (peripheral); I35.0 Nonrheumatic aortic (valve) stenosis; G89.4 Chronic pain syndrome; E43 Unspecified severe protein-calorie malnutrition; Z68.41 Body mass index [BMI] 40.0-44.9, adult; Z79.899 Other long term (current) drug therapy; Z79.02 Long term (current) use of antithrombotics/antiplatelets; Z88.6 Allergy status to analgesic agent; Z88.0 Allergy status to penicillin; Z90.710 Acquired absence of both cervix and uterus; Z90.49 Acquired absence of other specified parts of digestive tract; Z87.891 Personal history of nicotine dependence | CPT/HCPCS: 11042; 11043; 11044; 11047 ==